=== PATIENT | female | born 1945 | race Caucasian/White ===

== ENCOUNTER 2017-06-28 14:28 | Inpatient (IN) | payer MEDICARE ==
[~2017-06-28] VITALS: Ht 160 cm; Wt 75.3 kg
[~2017-06-28 14:28] MED LIST: BENICAR40 MG PO; CRUTCH1 EACH; DELZICOL400 MG PO; IBUPROFEN600 MG PO; LANSOPRAZOLE30 MG PO; METOPROLOL SUCC50 MG PO; NORCO 5-325 TA1 EACH PO; REQUIP2 MG PO; SERTRALINE HCL25 MG PO; VOLTAREN100 GM TOP
[2017-08-13] MEDS ORDERED: SUCRALFATE1 GM PO (10:18)
[2017-08-13] MEDS ORDERED: IMITREX50 MG PO (10:19)
[2017-08-13] MEDS ORDERED: PROAIR HFA8.5 GM INH (10:39)
[2017-08-20] MEDS ORDERED: ALLOPURINOL100 MG PO (06:19)
--- NOTE | 2017-08-20 10:45 | NUR ---
08/20/17 1045 Celina Hickey REPORT PER PUBLIC FINANCE SPECIALIST. 1015-MD AT BEDSIDE.MOUTH CARE GIVEN. 1020-DURAMORPH EPID INFUSION REPROGRAMMED PER PUBLIC FINANCE SPECIALIST AND BEGUN.
--- NOTE | 2017-08-20 11:55 | NUR ---
PT'S OXYGEN SATURATION LEVEL 94% ON 2L. PT DROWSY. RATED PAIN 6/10 TO UPPER ABDOMEN, BUT FELL ASLEEP AFTER 60 SECONDS. RIGHT FOOT AND LOWER LEG HAS DIMINISHED SENSATION, NO REPORTS OF TINGLING. LEFT FOOT AND LOWER LEG ALSO HAS DIMINISHED SENSATION,BUT GREATER SENSATION THAN RLE. ABLE TO MOVE FEET. RESPIRATORY RATE 15 BREATHS PER MINUTE.
--- NOTE | 2017-08-20 12:05 | NUR ---
PT TO FLOOR FROM PACU VIA BED, ACCOMPANIED BY FRIEND AND JAYESH HUNTER. TO ROOM 107 AT 1150. PT DROWSY. AROUSED TO VERBAL STIMULI. GAVE PT INSENTIVE SPIROMETER, GAVE PT EDUCATION ON I.S. USE. PT USED, DID 10 BREATHS, GOT UP TO 1250. DRESSING TO ABDOMEN IS MEPILEX WITH OP SITE, DRESSING IS C/D/I. PT REPORTED INCREASE IN ABDOMINAL PAIN WITH DEEP BREATHS, BUT TOLERATED USING INSENTIVE SPIROMETER WELL. PT IS ON 2L O2 VIA NC, OXYGEN SATURATION LEVEL 94%. ON CONTINUOUS PULSE OX. PT'S NGT IS HOOKED TO KAREN.
--- NOTE | 2017-08-20 13:00 | NUR ---
PT IN BED SLEEPING. AROUSED TO VERBAL STIMULI. REPORTED THAT PAIN TO UPPER ABDOMEN HAS IMPROVED, RATED PAIN 5/10. SENSATION TO BILATERAL FEET/LEGS IS NOW EQUAL, SLIGHTLY DIMINISHED, PT ABLE TO MOVE FEET/TOES. RESPIRATORY RATE 18, OXYGEN SATURATION LEVEL 95% ON 2L O2 VIA NC. NGT TO LIWS, SMALL AMOUNT DARK BROWN DRAINAGE PRESENT IN TUBING.
--- NOTE | 2017-08-20 13:58 | NUR ---
PT IN BED, RESTING, NGT INTACT, TO LIWS, SMALL AMOUNT DARK BROWN DRAINAGE PRESENT IN TUBING. DRESSING TO ABDOMEN C/D/I. BILATERAL LOWER EXTREMITIES HAVE SLIGHTLY DIMINISHED SENSATION, SENSATION TO FEET/TOES EQUAL BILATERALLY. REPORTED PAIN TO UPPER ABDOMEN HAS IMPROVED, IS AT A TOLERABLE LEVEL AT THIS TIME. RESPIRATORY RATE 16, OXYGEN SATURATION LEVEL 96% ON 2L O2 VIA NC.
--- NOTE | 2017-08-20 15:04 | NUR ---
PT IN BED, RESTING QUIETLY. AROUSES TO VERBAL STIMULI. ORIENTED X 4. PT ABLE TO MOVE FEET, ANKLES, TOES, LEGS, IS ABLE TO PUSH FEET AGAINST THIS RN'S HANDS WITH GOOD FORCE. PT REPORTS TINGLING TO FEET/TOES, STILL DIMINISHED SENSATION, BUT IMPROVING. REPORTS PAIN IS STILL TOLERABLE TO UPPER ABDOMEN. RESPIRATORY RATE 20, SAT 94% ON 2L O2 VIA NC.
--- NOTE | 2017-08-20 16:28 | NUR ---
PT IN BED, RESTING WITH EYES CLOSED. AROUSED TO SOUND OF THIS RN ENTERING ROOM. PT REPORTED THAT PAIN TO UPPER ABDOMEN IS AT A TOLERABLE LEVEL. DENIED NAUSEA. REPORTED THAT SHE IS STILL FEELING SOME DIMINISHED SENSATION TO BILATERAL FEET/TOES, WITH TINGLING, REPORTED THAT SENSATION IS STILL IMPROVING. NGT TO LIWS, STILL JUST SMALL AMOUNT OF DARK BROWN DRAINAGE IN SUCTION TUBING.
[2017-08-20] MEDS ORDERED: L-LYSINE500 M1 PO (17:32)
[2017-08-20] MEDS ORDERED: ZOVIRAX400 MG PO (17:33)
--- NOTE | 2017-08-20 17:34 | NUR ---
Medications reconciled using PCP chart notes and patient interview
--- NOTE | 2017-08-20 18:02 | NUR ---
PT HAS D5LR INFUSING AT 85CC/HR. HAS MORPHINE EPIDURAL INFUSING AT 6ML/HR. NGT TO LOW INTERMITANT SUCTION, SMALL AMOUNT OF DARK BROWN DRAINAGE IN SUCTION TUBING AND CONTAINOR. PT ALLOWED CLEAR LIQUIDS, MOSTLY WATER, FOR COMFORT, NO ICE. PT HAS TOLERATED SMALL SIPS OF TAP WATER. MIDLINE ABDOMINAL INCISION COVERED WITH MEPILEX AND OPSITE, C/D/I. PT REPORTS DIMINISHED SENSATION TO FEET/TOES, WITH TINGLING. REPORTS THAT PAIN IS WELL CONTROLLED BY EPIDURAL THUS FAR. IS ON 2L O2 VIA NC TO MAINTAIN SATS GREATER THAN 90%. ON CONTINUOUS PULSE OX. HAD SPLENIC REPAIR, MONITOR FOR S/S BLEEDING. NONE NOTED THUS FAR. PT USED INSENTIVE SPIROMETER APROPRIATELY WHILE AWAKE. PT HAS BEEN DROWSY SINCE ARRIVAL AFTER SURGERY, BUT THIS HAS IMPROVED SLOWLY.
--- NOTE | 2017-08-20 18:49 | NUR ---
PT DANGLED LEGS, BECAME NAUSEATED, REPORTED VERTIGO WITH MOVEMENT. ASSISTED PT IN LAYING BACK IN BED, HOB ELEVATED. PT GIVEN COOL WASHCLOTH FOR FOREHEAD, ENCOUARGED TO TAKE SLOW DEEP BREATHS. PT REPORTED VERTIGO AND NAUSEA RESOLVING.
--- NOTE | 2017-08-21 00:32 | NUR ---
pt feeling very anxious, reassured. instructed not to forcebly cough, that what she is feelingis the ngt, receptive. medicated with toradol per abd pain
--- NOTE | 2017-08-21 01:51 | NUR ---
PT CALMER, RESTING, HOB 45o, NGT TO LIWS, DRAINING SMALL AMOUNTS OF DARK BROWN FLUID, PATENT. F/C PATENT DRAINING QS YELLOW URINE, SCDS INP[LACE, ABD DRESSING CDI. THIS NURSE WAS IN ROOM WITH PT 30+ MINUTES UNTIL PT CALMED DOWN AND LESS ANXIOUS,. CURRENTLY EYES CLOSED, NO RESP DISTRESS, CALMER
--- NOTE | 2017-08-21 05:42 | NUR ---
0523 - PT moved to room 119 via bed, tolerated well. NGT left nare, patent, draining thin brown colored drainage. has had a total of 300cc from begining to end of this shift. Pt tolerating sips of water, no chocking, no cough. Cont pulse ox in place, sats 94-96%. Morphine epidural infusing with good control. Large midline abd mepilex dressing covered with opsite CDI. very hypoactive bowel tones auscultated, IVF infusing w/o problems, scds in place. FC draining medium colored yellow urine QS. Pt was medicated wtih Torald IV per c/o generalized discomfort, effective. One episode of anxiety resolved . Pt currently awake watching tv, no c/o pain, no discomfort, no bleeding. repositioned in bed w help,
--- NOTE | 2017-08-21 07:50 | NUR ---
PATIENT SITTING STRAIGHT UP IN BED. WASHED HANDS AND FACE.
--- NOTE | 2017-08-21 08:22 | NUR ---
ASSESSMENT COMPLETE. PATIENT SITTING WITH HOB ELEVATED. PATIENT TAKING SIPS OF APPLE JUICE. GIVEN INSTRUCTIONS ON NOT EATING ANYTHING TOO HOT OR TOO COLD. PATIENT LUNGS CLEAR IN UPPER LOBES. FINE CRACKLES ASCULTATED IN L LOWER. RT IN ROOM FOR BREATHING TREATMENT. PATIENT HAS NO LOWER LEG SWELLING. SCDS IN PLACE. ABD HAS ACTIVE BS. NO FLATUS PASSED AT THIS TIME. HURST IN PLACE. URINE CAMRON IN COLOR. INSTRUCTED WITH PLACE TO GET OF BED TODAY.
--- NOTE | 2017-08-21 08:39 | NUR ---
DR. MASON IN ROOM. D/C'D PAMELA AT THIS TIME. PATIEN TOLERATED WELL. TOLERATING APPLE JUICE AND COOLED BROTH. INFORMED PATIENT OF PLAN TO D/C ARIS JOE.
--- NOTE | 2017-08-21 08:54 | OR ---
[facility] [address], [place] [address] Signed DATE OF OPERATION: 08/20/2017 SURGEON: Miguel Mason MD PREOPERATIVE DIAGNOSES: Intractable medically refractory gastroesophageal reflux disease with hiatal hernia, spontaneous regurgitation, esophagitis. POSTOPERATIVE DIAGNOSES: Intractable medically refractory gastroesophageal reflux disease with hiatal hernia, spontaneous regurgitation, esophagitis. PROCEDURE: 1. Hill repair (reconstruction of the gastroesophageal junction with posterior gastropexy). 2. Intraoperative manometrics. SURGEON: Miguel Mason MD ANESTHESIA: Epidural and general endotracheal, Sherry Jaime CRNA. INDICATION: This 71-year-old white woman is a patient of Dr. Terence Ashford, who has had longstanding gastroesophageal reflux problems. She was improved with medications. Unfortunately, she has had progression of her disease and has spontaneous regurgitation and mild dysphagia. She has nocturnal regurgitation and cough as well. She has had various medical regimens employed. She is not obese. Upper endoscopy performed in September 2016 confirmed hiatal hernia as well as low-grade esophagitis. A video esophagram was performed showing normal motility. She was admitted at this time to undergo reconstruction of the GE junction in hopes of improving her symptoms. She understands the risks of bleeding, infection, splenic injury, failure of operation, recurrent disease, dysphagia, short or long-term, and number of other potential complications outlined in our office notes. Understands that she wished to proceed. FINDINGS: A three finger GE junction was noted. The spleen was of normal size and the stomach was normal. The gallbladder was palpably and grossly normal as was the liver, although the left lateral segment was somewhat generous. There were adhesions in the lower aspect of the abdomen from previous low midline incision, which were freed up. The transverse colon was palpably and visibly normal. Reconstruction of the GE junction was accomplished in the standard way. Intraoperative Electronically Signed By: MIGUEL MASON MD 08/21/17 0854 PATIENT NAME: JOLIE HANLEY OPERATIVE REPORT DATE OF : 47 PHYSICIAN: MIGUEL MASON MD REPORT #: [id number] REPORT IS CONFIDENTIAL AND NOT TO BE RELEASED WITHOUT AUTHORIZATION [facility] [address], [place] [address] Signed manometric showed a peak pressure of approximately 35-40 mmHg over a 3 cm intraabdominal segment. During the course of operation, a medial capsular splenic tear allowed for some oozing of blood, which was controlled with Ervin and Gelfoam. Splenectomy was not required. By conclusion, a good flap valve was noted. The manometric tube was left in-situ to allow for postoperative decompression. The vagus nerves were identified, unharmed, and not encumbered in the wrap. DESCRIPTION OF PROCEDURE: The patient was brought to the operating room, given a general endotracheal anesthetic. An epidural catheter was placed and was considered "high" and functioning well. After satisfactory general endotracheal anesthesia, a Wright catheter was placed. The abdomen was prepared with a Betadine based solution and draped sterilely. Preoperative antibiotics were given as were sequential compression device stockings and heparin subcutaneously administered. An incision was made extending from the xiphoid to above the umbilicus. Abdominal wall fat was not excessively thick. The abdomen was entered without problem. Intraabdominal inspection was undertaken showing omental adhesions to the area above the umbilicus. These were taken down with blunt electrocautery dissection. A segment of transverse colon was densely adhesed and was freed up. A running 3-0 Vicryl was used to more fully secure a slight serosal tear in the mid transverse colon. Examination of the upper abdomen was undertaken. The spleen was of normal size and without lateral dense attachments. A rolled pack was placed behind it to take tension off the medial aspect of the spleen. The left lateral segment of liver was rather generous, but did not extend laterally very far. She was freed from the diaphragmatic attachments with electrocautery and blunt dissection. An upper hand retractor had been placed to allow for upper abdominal exposure. The gallbladder was palpably and visibly normal. The lesser omentum was incised with electrocautery revealing the caudate lobe of the liver. A [place] retractor was affixed to the lower aspect of the table allowing for fixed retraction of the left valve segment of the liver and the caudate lobe of the liver. This exposed the right keshawn of the diaphragm well. A Quinn clamp was applied to the right keshawn and using electrocautery, the phrenoesophageal bundle freed from it. Dissection was carried over the anterior aspect of the esophageal hiatus and gastrophrenic attachments were taken down with blunt, electrocautery dissection as well. Special care was taken in the region of the spleen, which did not have excessive short gastric involvement to the fundus of the stomach. The GE junction was elevated with a hook retractor allowing for dissection of the left keshawn freeing it completely. The preaortic fascia was freed down to the midportion of the Electronically Signed By: MIGUEL MASON MD 08/21/17 0854 PATIENT NAME: JOLIE HANLEY OPERATIVE REPORT DATE OF : 47 PHYSICIAN: MIGUEL MASON MD REPORT #: [id number] REPORT IS CONFIDENTIAL AND NOT TO BE RELEASED WITHOUT AUTHORIZATION [facility] [address], [place] [address] Signed pancreas. Special care was taken to free the esophagus from its filmy attachments in the posterior mediastinum making it fully mobile. The anterior and posterior vagus nerves were identified and kept out of harm's way. Elevation of the preaortic fascia from the underlying aorta was undertaken with blunt dissection using index finger. A calcific changes of the aorta were noted in this region. Bleeding was noted in the upper abdomen and it was not related to this dissection rather a capsular disruption of the medial aspect of the splenic hilum. There was no large vessel disruption, only capsular disruption. Ervin powdered hemostatic agent as well as Gelfoam was applied to the area and pressure applied. In time, there appeared to be good hemostasis allowing for progression of the operation. A small moist laparotomy pack was kept in the hilum during the rest of the operation and later removed. The left and right crura were then reapproximated with interrupted 0 silk suture with Iftikhar felt pledgets soaked in Betadine. The opening could accommodate not only esophagus, but the index finger alongside of the esophagus. [place] clamps were applied to the anterior and posterior phrenoesophageal bundles. In the standard technique of Wisam, a seromuscular bite of stomach and phrenoesophageal bundle was taken anteriorly, posteriorly, and pexed to the preaortic fascia, which was elevated away from the aorta with one of the silk sutures used to secure the crura. Five such repair sutures were placed. The repair sutures were of 0 Ethibond with Iftikhar felt pledgets soaked in Betadine. Surgeon's knots were used to secure the reconstructed GE junction to the preaortic fascia, but not fully secured until manometry was complete. Intraoperative manometrics were undertaken, showing a peak pressure of approximately 30-40 mmHg over a 3-4 cm segment of intraabdominal esophagus. The sutures were fully secured and a final pullout pressure was obtained showing a durable and reproducible waveform. Palpation of the reconstructive flap valve showed it to be quite good. The nasogastric tube was secured in place to allow for postoperative decompression of the stomach. The lap pad in the region of the splenic hilum was carefully removed. There was no ongoing bleeding. Additional Ervin and Gelfoam were applied to the area nevertheless. The posterior splenic pack was removed with all due care again showing no sign of bleeding. Plans were then made for closure. Midline fascia was reapproximated with running bidirectional #1 PDS suture. Subcutaneous tissue was irrigated with saline solution. Skin closed with running subcuticular 3-0 Vicryl. Steri-Strips were applied as was a Mepilex silver sponge dressing and an OpSite. Electronically Signed By: MIGUEL MASON MD 08/21/17 0854 PATIENT NAME: JOLIE HANLEY OPERATIVE REPORT DATE OF : 47 PHYSICIAN: MIGUEL MASON MD REPORT #: [id number] REPORT IS CONFIDENTIAL AND NOT TO BE RELEASED WITHOUT AUTHORIZATION [facility] [address], [place] [address] Signed The patient was ultimately extubated and transferred to recovery room in good condition having suffered no complications. Sponge, needle, and instrument counts were correct x3. Blood loss was estimated 150 mL based on the splenic capsule issue. Miguel Mason MD JM/MODL /[id number] cc: Terence Ashford MD Electronically Signed By: MIGUEL MASON MD 08/21/17 0854 PATIENT NAME: JOLIE HANLEY SASHA OPERATIVE REPORT DATE OF : 47 PHYSICIAN: MIGUEL MASON MD REPORT #: [id number] REPORT IS CONFIDENTIAL AND NOT TO BE RELEASED WITHOUT AUTHORIZATION
--- NOTE | 2017-08-21 10:06 | NUR ---
PATIENT STOOD AT BEDSIDE AND BACK TO BED. BED BATH DONE. LINENS CHANGED. ORAL CARE SET UP. NO OTHER NEEDS AT THIS TIME. RN IN ROOM.
--- NOTE | 2017-08-21 10:15 | NUR ---
vitals taken. arnp medication given. patient assisted to edge of bed. patient stood and did several marching steps. patient tolerated well. stating she felt weak and small amount of dizziness. much easier than yesterday patient reported. chio was d/c'd once patient was back to bed. assisted back to bed wtih hob elevated. pain remains well controlled. patient requesting to sleep a little this morning with plans to sit in the chair this afternoon. friend in room. educated about calling when needing to use br.
--- NOTE | 2017-08-21 11:31 | NUR ---
patient has c/o itching, nubain given 10mg subque at this time.
--- NOTE | 2017-08-21 11:44 | NUR ---
patient assisted to bsc. patient voided. assisted back to bed. don knutson in room to access epidural. taping adjustments made. assisted back to bed.
--- NOTE | 2017-08-21 12:00 | NUR ---
JELLO, APPLE JUICE, AND WARM BROTH GIVEN TO PATIENT FOR LUNCH. INSTRUCTIONS GIVEN TO GO SLOW. ASSESSMENT COMPLETE.
--- NOTE | 2017-08-21 12:29 | NUR ---
PATIENT RESTING IN BED WITH EYES CLOSED. FRIEND IN ROOM. CALL BUTTON IN REACH. NO NEEDS AT THIS TIME.
--- NOTE | 2017-08-21 13:33 | NUR ---
PATIENT RESTING WITH EYES CLOSED. RR EVEN AND UNLABORED. PATIENT COUSIN IN ROOM. NO OTHER NEEDS AT THIS TIME.
--- NOTE | 2017-08-21 14:00 | NUR ---
PATIENT UP TO CHAIR. BED NORMA. RN IN ROOM. NO OTHER NEEDS AT THIS TIME.
--- NOTE | 2017-08-21 14:13 | NUR ---
VITALS TAKEN. PATIENT ASSISTED TO CHAIR. TOLERATING AMBULATING IN ROOM VERY WELL. PATIENT STATED SHE WOULD LIKE TO EAT HER JELLO IN CHAIR AND THEN WILL CALL FOR A WALK.
--- NOTE | 2017-08-21 15:33 | NUR ---
patient ambulated in rhoades. tolerating ambulating to nursing station and back. assisted to the br. voided. brushed teeth. assisted back to bed. tolerating movement well.
--- NOTE | 2017-08-21 16:25 | NUR ---
report given to onel beal. introduced to new nurse. no other needs at this time.
--- NOTE | 2017-08-21 16:26 | NUR ---
patient has had a good day. currently on ra. cont. pulse ox in place. morphine epidural for another 24hrs. checked by don knutson. patient has been given toradol x 1 for break through pain. patient ambulated in rhoades. tolerating with 1 assist. was able to ambulate to nursing station. iv fluids running wnl. patient on clear liquid diet. not too hot and not too cold. active bs. no flatus at this time. voiding well.
--- NOTE | 2017-08-21 18:08 | NUR ---
PATIENT SITTING UP IN BED. STATES THAT SHE'S WORKING ON HER CLEAR LIQUID TRAY STILL. CALL BUTTON IN REACH. NO OTHER NEEDS AT THIS TIME.
--- NOTE | 2017-08-21 18:28 | NUR ---
PT REPORTS THAT HER PAIN IS WELL MANAGED AT THIS TIME. SHE SAID, "IT A MILD ACHE LIKE GAS IS MOVING." NO CONCERNS, NO REQUESTS AT THIS TIME. GUEST AT BEDSIDE.
--- NOTE | 2017-08-21 19:00 | NUR ---
RECEIVED REPORT FROM RN. PATIENT IS RESTING COMFORTABLY IN BED, BREATHING IS EVEN AND UNLABORED. DENIES NEEDS, NO PAIN AT THIS TIME. CALL LIGHT WITHIN REACH, VISITORS AT BEDSIDE.
--- NOTE | 2017-08-21 19:59 | NUR ---
EPIDURAL SITE ASSESSED. DRESSING CLEAN AND INTACT. SMALL AMOUNT OF DRAINAGE NOTED. SURROUNDING SKIN IS WNL, NO SIGNS OF INFLAMMATION. UNABLE TO ADD EPIDURAL ASSESSMENT TO INTERVENTION LIST.
--- NOTE | 2017-08-21 19:59 | NUR ---
PATIENT ASSISTED TO BATHROOM USING 1PA/NON-SLIP SOCKS, WHICH THE PATIENT TOLERATED WELL. REPORTS MILD PAIN, BUT STATES "I WANT TO WAIT FOR SOME PAIN MEDICATION. I DON'T WANT IT RIGHT NOW." NO FURTHER NEEDS. NOW RESTING COMFORTABLY IN BED, BREATHING IS EVEN AND UNLABORED. O2 SATURATION IS 93% ON ROOM AIR. CALL LIGHT WITHIN REACH, VISITOR AT BEDSIDE.
--- NOTE | 2017-08-21 20:11 | NUR ---
NURSE IN ROOM. PATIENT DOES NOT NEED ANYTHING AT THIS TIME. WHITEBOARD UPDATED, GREEN SHEET PUT ON DOOR, ROOM TIDIED.
--- NOTE | 2017-08-21 22:24 | NUR ---
PATIENT RESTING COMFORTABLY IN BED, BREATHING IS EVEN AND UNLABORED. O2 SATURATION IS 88% ON ROOM AIR, 1L O2 APPLIED VIA NC. HEART RATE IS 100. PATIENT REPORTS 7/10 PAIN IN ABD AT INCISION SITE. SHE STATES "IT FEELS SORE, LIKE I DID SOME ABDOMINAL EXERCISES." PRN TORDOL GIVEN PER EMAR. PATIENT ALSO REPORTS ITCHING, PRN NUBAIN GIVEN. DENIES FURTHER NEEDS AT THIS TIME. CALL LIGHT WITHIN REACH.
--- NOTE | 2017-08-21 23:30 | NUR ---
NURSE IN ROOM
--- NOTE | 2017-08-21 23:31 | NUR ---
PATIENT IS RESTING COMFORTABLY IN BED, BREATHING IS EVEN AND UNLABORED. O2 SATURATION IS 90% ON 1L O2 VIA NC, PULSE IS 90. FLACC SCORE OF 0. CALL LIGHT WITHIN REACH.
--- NOTE | 2017-08-22 01:45 | NUR ---
EPIDURAL SITE IS WNL. DRESSING IS CLEAN AND INTACT, NOW NEW DRAINAGE NOTED. SKIN AROUND INSERTION SITE IS WNL SHOWING NO SIGNS OF INFLAMMATION. PATIENT DENIES PAIN AT INSERTION SITE.
--- NOTE | 2017-08-22 02:27 | NUR ---
NURSE IN ROOM
--- NOTE | 2017-08-22 02:34 | NUR ---
PATIENT RESTING COMFORTABLY IN BED, BREATHING IS EVEN AND UNLABORED. O2 SAT IS 94% ON 1L O2 VIA NC, PULSE IS 94. DENIES NEEDS AT THIS TIME. REPORTS 6/10 PAIN AFTER AMBULATION TO COMODE USING 1PA/FWW/NON-SLIP SOCKS. OFFERED PAIN MEDICATION, BUT PATIENT DENIED NEED. SHE STATED "ONCE I AM IN BED AGAIN AND LAYING STILL, I WILL BE OKAY. I DO NOT WANT PAIN MEDICATION RIGHT NOW." PATIENT ALSO REPORTS THE NUBAIN RELIEVED PRURITUS. NO NEEDS AT THIS TIME. ALL ORDERS IN PLACE, CALL LIGHT WITHIN REACH.
--- NOTE | 2017-08-22 04:28 | NUR ---
PATIENT RESTING COMFORTABLY IN BED, BREATHING IS EVEN AND UNLABORED. O2 SATURATION IS 91% ON 1L O2 VIA NC, PULSE IS 83. CALL LIGHT WITHIN REACH.
--- NOTE | 2017-08-22 05:03 | NUR ---
PATIENT'S NIGHT WAS UNEVENTFUL. SHE HAS BEEN RESTING COMFORTABLY THROUGHOUT SHIFT, VSS, PAIN HAS BEEN WELL CONTROLLED WITH MORPHINE EPIDURAL AND PRN TORDOL. PATIENT REPORTED ITCHING X1, WHICH WAS RELIEVED BY NUBAIN ADMINISTRATION. NO COMPLAINTS OF NAUSEA. TOLERATING AMBULATION WELL WITH 1PA. DRESSING TO ABD HAS REMAINED CDI THROUGHOUT SHIFT, DRESSING FOR EPIDURAL HAS BEEN CLEAN AND INTACT WITH A SMALL AMOUNT OF DRAINAGE NOTED, WHICH HAS NOT CHANGED FROM BEGINNING OF SHIFT. REQUIRED 1L O2 DURING SLEEP DUE TO SATURATION OF 88% ON ROOM AIR. 92% ON 1L O2. TOLERATING CLEAR LIQUID DIET WELL, HAS FLUIDS RUNNING. NO ACUTE CHANGES FROM BEGINNING OF SHIFT ASSESSMENT.
--- NOTE | 2017-08-22 07:05 | NUR ---
BEDSIDE REPORT RECEIVED FROM TIGRE. PATIENT RESTING IN BED AWAKE, REPORT MINIMAL PAIN AND ITCHING. WASTE CHOPPER IN USE. PATIENT DENIES NAUSEA AT THIS TIME.
--- NOTE | 2017-08-22 08:06 | NUR ---
PATIENT ASSISTED TO BATHROOM, PATIENT REPORT BEING A LITTLE DIZZY WHEN FIRST SITTING AT BEDSIDE. MILD NAUSEA. PATIENT ALSO REPORTS THAT SHE IS FEELING WEAK. IV SITE PATENT AND EPIDURAL IN PLACE INFUSING. NO DISTRESS. PATIENT ASSISTED BACK TO CHAIR. RT IN ROOM AT THIS TIME TO GIVE PATIENT NEB TX
--- NOTE | 2017-08-22 08:19 | NUR ---
AM CARE. CLEANED UP ROOM. EMPTYED GARBAGE. FRESH WATER.
--- NOTE | 2017-08-22 11:09 | NUR ---
DENNIS CANNON WAS IN ROOM TO HENRRY NEGRON. DR ISABELLA OVERTON.
--- NOTE | 2017-08-22 12:16 | NUR ---
PT IN CHAIR. DOING WELL. SET UP FOR LUNCH.
--- NOTE | 2017-08-22 13:26 | NUR ---
PATIENT RESTING IN BED DENIES PAIN AT THIS TIME. EPIDURAL WAS D/C THIS AM PER DAVIS COLLINS. PATIENT TOLERATED FULL LIQUID WELL. FAMILY AT BEDSIDE.
--- NOTE | 2017-08-22 14:58 | NUR ---
PATIENT SITTING AT BEDSIDE. REPORT NO DIZZINESS. RATED PAIN AT 3/10 AND IS TOLERABLE FOR HER. PATIENT TOLERATED FULL LIQUID WELL.
--- NOTE | 2017-08-22 15:37 | NUR ---
DR MASON WAS IN ROOM TO SEE PATIENT. PATIENT IS RESTING IN THE CHAIR AT THIS TIME. NO APPARENT DISTRESS NOTED. RR EVEN/UNLABORED.
--- NOTE | 2017-08-22 15:38 | NUR ---
PT IN BED. TOOK PT TO THE BATHROOM. TOOK OFF PULSE OX. CALL LIGHT IN REACH.
--- NOTE | 2017-08-22 17:35 | NUR ---
PATIENT ASSISTED TO BATHROOM WITH FWW WITH NO DIFFICULTY. PATIENT REPORTS VERY MILD PAIN. ABD DRESSING D/C/I. PATIENT DENIES ANY NAUSEA. BILL OF LADING CLERK LACIE ASSISTED PATIENT BACK TO CHAIR.
--- NOTE | 2017-08-22 17:47 | NUR ---
TOOK PT TO BATHROOM. SHE SAID SHE DID NOT WANT TO GO FOR A WALK. SO SHE IS SITTING IN HER CHAIR WITH HER CALL LIGHT. WARM BLANKET.
--- NOTE | 2017-08-22 17:52 | NUR ---
PATIENT HAD A FAIR DAY. EPIDURAL D/C'D THIS AM. PATIENT HAD BEEN UP TO BATHROOM TO VOID MULTIPLE TIME. REPORTED VERY MILD PAIN FOR THE SHIFT. ABD TENDER, ABD DRESSING INTACT,POSITIVE BOWEL TONES. IV SITE PATENT AND D5LR INFUSING @ 85ML/HR. DIET ADVANCED TO FULL LIQUID. PATIENT TOLERATED WELL. NO NAUSEA. PATIENT IS A LITTLE WEAK. USED WALKER TO GO TO BATHROOM. ENCOURAGE AMBULATION.
--- NOTE | 2017-08-22 19:00 | NUR ---
RECEIVED REPORT FROM RN. PATIENT IS RESTING COMFORTABLY IN CHAIR COMFORTABLY. DENIES NEEDS AT THIS TIME. CALL LIGHT WITHIN REACH, FAMILY AT BEDSIDE.
--- NOTE | 2017-08-22 19:25 | NUR ---
ROUNDED CHARGE. PATIENT IS RESTING IN RECLINER VISITING WITH FAMILY. PATIENT DENIES ANY, COMMENTS, QUESTIONS, OR CONCERNS. NO NEEDS AT THIS TIME. CALL LIGHT IN REACH.
--- NOTE | 2017-08-22 21:43 | NUR ---
PATIENT RESTING COMFORTABLY IN CHAIR, BREATHING IS EVEN AND UNLABORED. ASSISTED PATIENT TO BATHROOM USING 1PA/FWW/NON-SLIP SOCKS. NOW RESTING COMFORTABLY IN BED. PATIENT REPORTS 6/10 PAIN IN ABD, PRN DILAUDID GIVEN PER EMAR. PATIENT DENIES FURTHER NEEDS AT THIS TIME. CALL LIGHT WITHIN REACH.
--- NOTE | 2017-08-23 00:24 | NUR ---
PATIENT RESTING COMFORTABLY IN BED, BREATHING IS EVEN AND UNLABORED. CALL LIGHT WITHIN REACH.
--- NOTE | 2017-08-23 02:00 | NUR ---
PATIENT ASSISTED TO BATHROOM WITH 1PA/FWW/NON-SLIP SOCKS. REPORTS 1/10 PAIN IN ABD AND STATES "I DON'T WANT ANOTHER ONE OF THOSE PILLS. IT MADE ME FEEL NAUSEAOUS." WILL ADMINISTER PRN ZOFRAN. DENIES FURTHER NEEDS AT THIS TIME. BREATHING IS EVEN AND UNLABORED. ASSESSMENT DONE. CALL LIGHT WITHIN REACH.
--- NOTE | 2017-08-23 05:08 | NUR ---
PATIENT RESTING COMFORTABLY IN BED, BREATHING IS EVEN AND UNLABORED. FLACC SCORE OF 0. CALL LIGHT WITHIN REACH.
--- NOTE | 2017-08-23 05:12 | NUR ---
PATIENT'S NIGHT WAS UNEVENTFUL. SHE HAS BEEN RESTING COMFORTABLY IN BED THROUGHOUT SHIFT. VSS, PAIN HAS BEEN WELL CONTROLLED WITH PO DILAUDID. PATIENT BECAME NAUSEOUS ONCE LAST NIGHT, PRN ZOFRAN GIVEN WITH ADEQUATE RELIEF. PATIENT HAS BEEN UNABLE TO HAVE A BOWEL MOVEMENT SINCE HER ADMISSION, BOWEL TONES ARE ACTIVE AND PATIENT IS PASSING GAS. NO ACUTE CHANGES FROM BEGINNING OF SHIFT.
--- NOTE | 2017-08-23 06:38 | NUR ---
PATIENT RESTING COMFORTABLY IN CHAIR, BREATHING IS EVEN AND UNLABORED. PATIENT REPORTS HEADACHE THIS MORNING AND STATES "I DO NOT LIKE THE DILAUDID THAT I TOOK EARLIER. IT MADE ME FEEL SICK." PATIENT ASKING FOR TYLENOL FOR HEADACHE. WILL CONTACT DR. MASON REGARDING PATIENT'S REQUEST. NO OTHER NEEDS AT THIS TIME. CALL LIGHT WITHIN REACH.
--- NOTE | 2017-08-23 07:30 | NUR ---
REPORT RECEIVED FROM TIGRE. PATIENT UP TO CHAIR. REPORT MILD HEADACHE, AND SORENESS AT THE INCISION SITE. LUKE WARM COFFE PROVIDED. IV FLUID INFUSING. WILL CONTINUE TO MONITOR
--- NOTE | 2017-08-23 08:00 | NUR ---
WHITEBOARD UPDATED, ROOM TIDIED. PATIENT IN CHAIR. DOES NOT NEED ANYTHING AT THIS TIME.
--- NOTE | 2017-08-23 08:30 | NUR ---
PATIENT RESTING IN THE CHAIR. DENIES PAIN AND NAUSEA. REPORTS SORENESS AT THE INCISION SITE. PATIEN TOLERATED FULL LIQUID WELL. POSITIVE BOWEL TONES.N ABD DRESSIGN CLEAN & DRY. PATIENT REPORTS THAT SHE IS FEELING BETTER TODAY. ALSO REPORTS PASSISNG FLATUS.
--- NOTE | 2017-08-23 10:00 | NUR ---
BREAKFAST TRAY TAKEN OUT
--- NOTE | 2017-08-23 11:36 | NUR ---
PATIENT WAS UP TO BATHROOM. PATIENT AMBULATED IN THE LILLY WAY WITH NO DIFFICULTY. PATIENT DENIES PAIN AND NAUSEA. RESTING IN THE CHAIR AT THIS TIME.
--- NOTE | 2017-08-23 12:54 | NUR ---
patient doing well, does not need anything at this time.
--- NOTE | 2017-08-23 15:25 | NUR ---
PATIENT RESTING IN THE CHAIR, APPEARS TO BE SLEEPING. NO APPARENT DISTRESS. RR EVEN/UNLABORED.
--- NOTE | 2017-08-23 16:34 | NUR ---
IV D/C DUE TO PAIN. DR MASON AWARE. PATIENT RESTING IN THE CHAIR AT THIS TIME, REPORT PAIN AT THE LEFT FOREARM. ICE PACK APPLIED AFTER IV WAS D/C'D.
--- NOTE | 2017-08-23 17:40 | NUR ---
TOOK PATIENT TO BEDSIDE COMMODE. INCONTINENT OF STOOL. PERFORMED NELSON CARE/ PARTIAL BEDBATH. CHANGED DEPEND AND GOWN. REFILLED ICE WATER AND TOOK VITAL SIGNS. PATIENT DOES NOT NEED ANYTHING ELSE AT THIS TIME.
--- NOTE | 2017-08-23 18:09 | NUR ---
PATIENT HAD DONE WELL TODAY. AMBULATED IN THE HALLWAY ONCE AND IN THE ROOM. TOLERATED FULL LIQ WELL. NO NAUSEA. IV DC PER DR MASON ORDER. PATIENT MAY HAVE SHOWER. DRESSING INTACT AND DRY. MAY GO HOME TOMORROW.
--- NOTE | 2017-08-23 20:15 | NUR ---
EVENING MEDS GIVEN PER ORDER. PATIENT REPORTS PAIN CONTROLLED AT 3/10. NO NAUSEA. FEELS LIKE SHE HAS GAS, TALKED WITH HER ABOUT AMBULATION AND SHE AGREED TO WALK IN HALLWAY WITH HER FRIEND THAT IS VISITING. ABD IS MILDLY DISTENDED AND BOWEL SOUNDS ACTIVE. MIDLINE ABD DRESSING IS C/D/I. LUNGS ARE CLEAR. NO NEEDS AT THIS TIME. CALL LIGHT IN REACH.
--- NOTE | 2017-08-23 20:24 | NUR ---
PATIENT UP WALKING IN HALLWAY. APPEARS STEADY ON HER FEET. SBA WITH FRIEND. TOLERATING WELL. WALKED FULL LENGTH OF LILLY AND BACK TO ROOM.
--- NOTE | 2017-08-23 21:35 | NUR ---
PATIENT REQUEST PRN PAIN MEDS, WHICH WERE GIVEN TO HER. REPORTS PAIN IS 4/10 BUT INCREASING. PATIENT REPORTS FEELING BLISTERS ON HER MID BACK. PATIENT HAD TAPE FROM EPIDURAL POST SURGERY THAT WAS REMOVED. APPEARS TO BE A SENSITIVITY TO TAPE. BACITRACIN OINTMENT APPLIED.
--- NOTE | 2017-08-24 00:30 | NUR ---
PATIENT RESTING IN BED. EYES CLOSED, AWOKE TO NURSE ENTERING ROOM. DENIES NEEDS AND STATED THAT HER PAIN IS "FINE". CALL LIGHT IN REACH. SCDS ON.
--- NOTE | 2017-08-24 01:41 | NUR ---
ASSISTED PATIENT TO THE BATHROOM. PATIENT TOLERATED WELL,SBA. PATIENT REPORTS PAIN AT 1/10 AND DENIES NAUSEA. SHE REPORTS THAT THE PO DILAUDID WORKED WELL FOR HER BECAUSE SHE HAD BEEN CONCERNED ABOUT TAKING ANY NARCOTICS. DRESSING IS C/D/I. PATIENT BACK IN BED. SCDS ON. CALL LIGHT IN REACH.
--- NOTE | 2017-08-24 03:50 | NUR ---
PATIENT RESTING IN BED. EYES CLOSED. RR15. CALL LIGHT IN REACH.
--- NOTE | 2017-08-24 05:00 | NUR ---
PATIENT RESTING. EYES CLOSED. RR 15. CALL LIGHT IN REACH.
--- NOTE | 2017-08-24 05:29 | NUR ---
PATIENT RESTED WELL THROGUHOUT THE SHIFT. RA, O2 >90%. DRESSING IS C/D/I, ABD IS MILDLY DISTENDED, BOWEL SOUNDS ACTIVE. PATIENT AMBULATED IN HALLWAY. NO NAUSEA. PAIN WELL CONTROLLED. NO IV ACCESS.
--- NOTE | 2017-08-24 07:56 | NUR ---
WHITEBOARD UPDATED, ROOM TIDIED. PATIENT ASLEEP WHEN I WENT IN. PATIENT JUST CALLED TO GET A SHOWER, NURSE WENT IN TO GET HER INTO THE SHOWER.
--- NOTE | 2017-08-24 08:40 | NUR ---
PATIENT SAID BREAKFAST WAS TOO SWEET. MADE PATIENT TOMATO SOUP
--- NOTE | 2017-08-24 09:00 | NUR ---
PATIENT UP TO SHOWER, INDEPENDANT IN ROOM. FULL BODY ASSESMENT DONE. NO COMPLAINTS OF PAIN. PATIENT STATES " I AM READY TO GO HOME". PLAN TO DISCHARGE TODAY.
--- NOTE | 2017-08-24 11:49 | NUR ---
PATIENT GETTING READY TO BE DISCHARGED
[2017-08-24] MEDS ORDERED: HYDROMORPHONE HC4 MG PO (12:27)
--- NOTE | 2017-08-24 12:47 | NUR ---
DR. ISABELLA ROSALES, NEW ORDER FOR DISCHARGE.
--- NOTE | 2017-08-24 13:14 | NUR ---
DID PATIENT'S DISCHARGE VITAL SIGNS.
--- NOTE | 2017-08-27 11:14 | DS ---
[facility] [address] [place], [place] [address] Signed ADMISSION DATE: 08/20/2017 DISCHARGE DATE: 08/24/2017 REASON FOR ADMISSION: Here for Hill repair for intractable medically refractory gastroesophageal reflux with hiatal hernia. HISTORY OF PRESENT ILLNESS: This 71-year-old white woman is a patient of Dr. Terence Ashford and has had progressive intractable medically refractory gastroesophageal reflux. She has spontaneous regurgitation, requires a PPI medication as well as Carafate for minimal symptom control at this time. A video esophagram showed normal motility. Upper endoscopy confirmed hiatal hernia as well as low-grade esophagitis. She is admitted to undergo Hill repair for reconstruction of GE junction. PERTINENT PHYSICAL EXAMINATION: GENERAL: A pleasant white woman, who looked to be in no acute distress. NECK: Trachea midline. CHEST: Clear. HEART: Regular without murmur. ABDOMEN: Mildly obese only. EXTREMITIES: No clubbing, cyanosis, or edema. HOSPITAL COURSE: On August 20, 2017, she underwent Hill repair with intraoperative manometrics. An optimal flap valve was reconstructed. Intraoperative manometric pressure showed a peak pressure of approximately 35-40 mmHg over a 3 cm intraabdominal segment. Reconstructive flap valve was considered optimal. An epidural catheter was placed for postoperative pain control. Postoperatively, she had essentially no pain with a catheter in place. The catheter was maintained for 48 hours, removed, and exchanged for a Dilaudid pill, which she tolerated well. As regards to diet, she began on a clear liquid diet the night of operation, though she did have the manometric decompressive tube in place. She advanced to a full liquid diet and was left in that station due to mild slowness of swallowing. She will advance her diet to mechanical soft diet as an outpatient. By time of discharge, she is ambulating well, tolerating a pain pill (Dilaudid), has minimal incisional pain, and no overt dysphagia. Most importantly, she has no reflux whatsoever. She will return to see me in approximately 4 weeks for followup. She is instructed to avoid lifting more than 20 pounds for the next 4 weeks. She should walk on Electronically Signed By: MIGUEL MASON MD 08/27/17 1114 PATIENT NAME: JOLIE HANLEY DISCHARGE SUMMARY DATE OF : 47 PHYSICIAN: MIGUEL MASON MD REPORT #: [id number] REPORT IS CONFIDENTIAL AND NOT TO BE RELEASED WITHOUT AUTHORIZATION [facility] [address] [place], [place] [address] Signed a daily basis and advance diet as described. DISCHARGE MEDICATIONS: Will include: 1. Dilaudid 4 mg tablets 1-2 p.o. q.3 hours p.r.n. pain, #40. 2. Requip 2 mg p.o. at bedtime. 3. Metoprolol 50 mg p.o. daily. 4. Benicar 40 mg p.o. daily. 5. Imitrex 50 mg tablet as needed for migraine headache. 6. ProAir albuterol 2 puffs inhaler q.4 hours as needed. 7. Allopurinol 100 mg tablet p.o. daily. 8. Lysine 500 mg tablet daily as needed. 9. Acyclovir Zovirax 400 mg 1 tablet p.o. b.i.d. as needed for cold sores. 10. She will discontinue her lansoprazole and sucralfate. DISCHARGE DIAGNOSES: 1. Medically refractory gastroesophageal reflux with hiatal hernia and spontaneous regurgitation. 2. Status post Hill repair (reconstruction of the GE junction with posterior gastropexy and intraoperative manometrics). 3. Hypertension. 4. Restless legs syndrome. MD MARICRUZ Juares/CHELAL /[id number] cc: Terence Ashford MD Electronically Signed By: MIGUEL MASON MD 08/27/17 1114 PATIENT NAME: JOLIE HANLEY SASHA DISCHARGE SUMMARY DATE OF : 47 PHYSICIAN: MIGUEL MASON MD REPORT #: [id number] REPORT IS CONFIDENTIAL AND NOT TO BE RELEASED WITHOUT AUTHORIZATION
== END 2017-08-24 13:00 | disposition home or self-care (01) | DRG 328 ==
LOC: MS 08-20 05:40 → DSVR 08-20 05:40 → MS 08-20 06:45
PROVIDERS: ADMIT Surgery
PROC: 0DQ40ZZ Repair Esophagogastric Junction, Open Approach (ICD-10-PCS; principal; 2017-08-20 06:45)
DX: K44.9 Diaphragmatic hernia without obstruction or gangrene (principal); I10 Essential (primary) hypertension; G25.81 Restless legs syndrome; K21.0 Gastro-esophageal reflux disease with esophagitis
CPT/HCPCS: 00790; 01996; 36415; 62325; 85025; 94640; 94762; J0330; J1100; J1644; J1885; J2060; J2274; J2300; J2370; J2405; J2704; J7040; J7120

== ENCOUNTER 2020-05-20 18:00 | Emergency (ER) | payer MEDICARE ==
[~2020-05-20] VITALS: Ht 160 cm; Wt 75.3 kg
--- OUTSIDE RECORDS SUMMARY | ~2020-05-20 | XMS | Encounter Summary ---
Demographics + + + | Address | [address] | | | [place] [address] | + + + | Home Phone | | + + + | Preferred Language | Unknown | + + + | Marital Status | Single | + + + | Evangelical Affiliation | Unknown | + + + | Race | White | + + + | Ethnic Group | Not or | + + + Author + + + | Author | [facility] | | | and [place] | + + + | Organization | [facility] | | | and [place] | + + + | Address | Unknown | + + + | Phone | Unavailable | + + + Support + + +---------+ + | Name | Relationship | Address | Phone | + + +---------+ + | Clyde Poole | ECON | Unknown | | + + +---------+ + Care Team Providers + +------+ + | Care Psych Sales Specialist Name | Role | Phone | + +------+ + PCP | Unavailable | + +------+ + Encounter Details +--------+ + + + + | Date | Type | Department | Care Team | Description | +--------+ + + + + | 06/21/ | Hospital | [facility] | | | | 2007 | Encounter | [facility] | | | | | | [address] | | | | | | [place] | | | | | | [address] | | | | | | [phone] | | | +--------+ + + + + Social History + +-------+ +--------+------+ | Tobacco Use | Types | Packs/Day | Years | Date | | | | | Used | | + +-------+ +--------+------+ | Never Assessed | | | | | + +-------+ +--------+------+ + + + | Sex Assigned at | Date Recorded | | | | + + + | Not on file | | + + + documented as of this encounter Plan of Treatment Not on filedocumented as of this encounter Visit Diagnoses Not on filedocumented in this encounter"
--- OUTSIDE RECORDS SUMMARY | ~2020-05-20 | XMS | Encounter Summary ---
Demographics + + + | Address | [address] | | | [place] [address] | + + + | Home Phone | | + + + | Preferred Language | Unknown | + + + | Marital Status | Single | + + + | Confucianism Affiliation | Unknown | + + + | Race | White | + + + | Ethnic Group | Not or | + + + Author + + + | Author | [facility] | | | and [place] | + + + | Organization | [facility] | | | and [...] Team Providers + +------+ + | Care Aged Or Disabled Carer Name | Role | Phone | + +------+ + | Shari Jensen MD | PCP | | + +------+ + Reason for Visit + + + | Reason | Comments | + + + | Flank Pain | | + + + Encounter Details +--------+ + + + + | Date | Type | Department | Care Team | Description | +--------+ + + + + | 06/23/ | Emergency | [facility] | Naveen Coon | Flank pain (Primary | | 2013 | | [facility] | [address] | Dx); Ureteral colic | | | | [address] | [address] [facility] | | | | | [place], [place] | [place] [address] | | | | | [address] | [phone] | | | | | [phone] | | | | | | | Cl Ventura MD | | | | | | [address] [facility] | | | | | | [place] [address] | | | | | | [phone] | | | | | | | | +--------+ + + + + Social History + +-------+ +--------+------+ | Tobacco Use | Types | Packs/Day | Years | Date | | | | | Used | | + +-------+ +--------+------+ | Never Smoker | | | | | + +-------+ +--------+------+ + +---+---+---+ | Smokeless Tobacco: | | | | | Never Used | | | | + +---+---+---+ + + +---------+ + | Alcohol Use | Drinks/Week | oz/Week | Comments | + + +---------+ + | Yes | | | rare | + + +---------+ + + + + | Sex Assigned at | Date Recorded | | | | + + + | Not on file | | + + + documented as of this encounter Last Filed Vital Signs + + + + + | Vital Sign | Reading | Time Taken | Comments | + + + + + | Blood Pressure | 160/78 | 06/23/2014 10:10 AM | | | | | MDT | | + + + + + | Pulse | 72 | 06/23/2014 10:10 AM | | | | | MDT | | + + + + + | Temperature | 36.7 C (98 F) | 06/23/2014 10:10 AM | | | | | MDT | | + + + + + | Respiratory Rate | 16 | 06/23/2014 10:10 AM | | | | | MDT | | + + + + + | Oxygen Saturation | 98% | 06/23/2014 10:10 AM | | | | | MDT | | + + + + + | Inhaled Oxygen | - | - | | | Concentration | | | | + + + + + | Weight | - | - | | + + + + + | Height | - | - | | + + + + + | Body Mass Index | - | - | | + + + + + documented in this encounter Discharge Instructions Instructions Cl Ventura MD - . Drink plenty of fluids 2. Toradol as prescribed 3. If pain worsens she may need additional studies like an IVP 4. Followup with your primary care provider or return to the ER if not improving AttachmentsThe following attachments cannot be sent through Care Everywhere.KIDNEY STONE W/ COLIC (CHINESE)documented in this encounter Medications at Time of Discharge + + + +---------+ + + | Medication | Sig | Dispensed | Refills | Start | End Date | | | | | | Date | | + + + +---------+ + + | acetaminophen | Take 500 mg by mouth | | 0 | 06/05/20 | | | (TYLENOL EX ST | Daily as needed. | | | 12 | | | ARTHRITIS PAIN) 500 | | | | | | | mg tablet | | | | | | + + + +---------+ + + | acyclovir | Take 800 mg by mouth | | 0 | 06/05/20 | | | (ZOVIRAX) 800 mg | 2 times daily. | | | 12 | | | tablet | | | | | | + + + +---------+ + + | Albuterol Sulfate | AERS 1 puff every | | 0 | 06/05/20 | | | (PROVENTIL HFA IN) | 4-6 hours | | | 12 | | + + + +---------+ + + | buPROPion | Take 150 mg by mouth | | 0 | 01/23/20 | | | (WELLBUTRIN XL) 150 | Daily. | | | 11 | | | mg 24 hr tablet | | | | | | + + + +---------+ + + | Calcium Carbonate | TABS Take one tablet | | 0 | 06/05/20 | | | (CALCARB 600 PO) | twice daily | | | 12 | | + + + +---------+ + + | cephalexin | Take 500 mg by mouth | | 0 | 08/01/20 | | | (KEFLEX) 500 mg | every 6 hours. | | | 10 | | | capsule | | | | | | + + + +---------+ + + | diclofenac | Take 100 mg by mouth | | 0 | 06/05/20 | | | (VOLTAREN XR) 100 mg | Daily. | | | 12 | | | TB24 | | | | | | + + + +---------+ + + | estradiol | Take 2 mg by mouth | | 0 | 06/05/20 | | | (ESTRACE) 2 MG | Daily. | | | 12 | | | tablet | | | | | | + + + +---------+ + + | | 1 puff twice daily | | 0 | 06/05/20 | | | fluticasone-salmeter | | | | 12 | | | ol (ADVAIR DISKUS) | | | | | | | 100-50 mcg/puff | | | | | | | diskus inhaler | | | | | | + + + +---------+ + + | folic acid 1 mg | Take 1 mg by mouth | | 0 | 06/05/20 | | | tablet | Daily. | | | 12 | | + + + +---------+ + + | | Take 1-2 tablets by | 20 | 0 | 06/23/20 | | | HYDROcodone-acetamin | mouth every 4 hours | tablet | | 14 | | | ophen (NORCO) 5-325 | as needed for Pain. | | | | | | mg per tablet | | | | | | + + + +---------+ + + | | Take one tablet by | | 0 | 06/05/20 | | | HYDROcodone-acetamin | mouth every 4-6 | | | 12 | | | ophen (VICODIN) | hours | | | | | | 5-500 mg per tablet | | | | | | + + + +---------+ + + | Inositol Niacinate | two by mouth every | | 0 | 01/23/20 | | | (NIACIN FLUSH FREE) | day | | | 11 | | | 500 MG CAPS | | | | | | + + + +---------+ + + | lansoprazole | Take 30 mg by mouth | | 0 | 06/05/20 | | | (PREVACID) [address] | Daily. | | | 12 | | | capsule | | | | | | + + + +---------+ + + | Magnesium Oxide | Take 400 mg by mouth | | 0 | 06/05/20 | | | 400 MG CAPS | 2 times daily. | | | 12 | | + + + +---------+ + + | mesalamine | Take 400 mg by mouth | | 0 | 06/27/20 | | | (ASACOL) [address] | 2 times daily. | | | 10 | | | tablet | | | | | | + + + +---------+ + + | metoprolol | Take 50 mg by mouth | | 0 | 06/05/20 | | | succinate (TOPROL | Daily. | | | 12 | | | XL) 50 mg 24 hr | | | | | | | tablet | | | | | | + + + +---------+ + + | montelukast | Take 10 mg by mouth | | 0 | 06/05/20 | | | (SINGULAIR) 10 mg | Daily. | | | 12 | | | tablet | | | | | | + + + +---------+ + + | olmesartan | Take one tablet by | | 0 | 06/27/20 | | | (BENICAR) 20 mg | mouth daily - failed | | | 10 | | | tablet | multiple | | | | | | | medications in past | | | | | | | able only to | | | | | | | tolerate Benicar | | | | | + + + +---------+ + + | Bancroft-3 Fatty | Take two capsules by | | 0 | 06/05/20 | | | Acids (EQL FISH OIL) | mouth daily | | | 12 | | | 1000 MG CAPS | | | | | | + + + +---------+ + + | Riboflavin | CAPS Take one | | 0 | 06/05/20 | | | (B-2-400 PO) | capsule by mouth | | | 12 | | | | daily | | | | | + + + +---------+ + + | SORAfenib | Take 400 mg by mouth | | 0 | | | | (NEXAVAR) 200 mg | 2 times daily. | | | | | | tablet | | | | | | + + + +---------+ + + | SUMAtriptan | Take 50 mg by mouth | | 0 | 06/05/20 | | | (IMITREX) 50 mg | Daily as needed. | | | 12 | | | tablet | | | | | | + + + +---------+ + + | ketorolac | Take 1 tablet by | 20 | 0 | 06/23/20 | | | (TORADOL) 10 MG | mouth every 6 hours | tablet | | 14 | 4 | | tablet | as needed for Pain | | | | | | | for up to 5 days. | | | | | + + + +---------+ + + documented as of this encounter ED Notes Nash Brennan RN - 06/23/2014 10:22 AM ADALBERTO instructions given to patient - verbalized understanding and voices no concerns- sent home with urine strainer Cl Sage MD - 06/23/2014 10:10 AM MD Gutierrez Continued care: This patient felt better after receiving the Toradol injection. I reviewed her history as well as her laboratory and physical findings. She does have a small amount of blood in her urine but her CT is negative. Ct Abdomen Pelvis Wo Contrast 06/23/2014 EXAMINATION: CT Abdomen and Pelvis without Contrast EXAMINATION DATE: June 23, 2014 REASON FOR EXAMINATION: Right flank pain. TECHNIQUE: Multiple, noncontrast, 5 mm, axial images were obtained through the abdomen and pelvis. Subsequently, thin section amber nstructions were performed and sagittal and coronal reformations were generated. CONTRAST: None COMPARISON: None available. FINDINGS: Lung bases: Streaky opacities at the bases sug gestive of platelike atelectasis. Abdomen: Liver: Normal by noncontrast CT standards. Gal lbladder/biliary: No radiopaque cholelithiasis or biliary dilatation. Adrenal glands: Withou t nodularity. Kidneys: No cholelithiasis or hydronephrosis bilaterally. No perinephric infla mmatory fat stranding. Pancreas: Unremarkable for technique. Spleen: Normal. Stomach/small b owel/large bowel: No obstruction. No active inflammation. Nonvisualization of the appendix , no secondary signs of acute appendicitis. Lymph nodes: No lymphadenopathy by CT size crite giuliano. Retroperitoneum: No masses or fluid collections. Vessels: Atherosclerotic calcification s of the aorta and arteries. No aneurysmal dilatation of the aorta. Pelvis: Urinary bladde r: Grossly Normal. Prior hysterectomy. No adnexal masses. Multiple phleboliths throughout th e pelvis. Bones: No fractures. Degenerative changes of the visualized spine. IMPRESSION - 1. No hydronephrosis or nephrolithiasis bilaterally. 2. No obstructive or inflammatory proce ss throughout the abdomen and pelvis. Nonvisualization of the appendix, no secondary signs o f acute appendicitis. Electronically signed by:Mook Rose MD Discussion: I Feel this patient probably has some renal colic. Her symptoms are very classic for that and on physical findings she does still have a mild amount of flank pain. I do not think he r urine is infected and I do think the blood represents passage of small stones or crystals. I've explained this to her. We will go ahead and have her hydrate well at home and keep h er on ketorolac for the next 5 days. I've asked her to strain the urine just to see if we c an capture a small stone. Home-going instructions: 1. Drink plenty of fluids 2. Toradol 10 mg every 6 hours for 5 days 3. Lortab 5-325 one to 2 every 4 hours as needed for pain 4. Return if the symptoms worsen otherwise followup with your primary care provider upon r eturning to [place]. Final diagnosis: Ureteral colic Cl Ventura MD 06/23/14 1013 Naveen Jurado PA-C - 06/23/2014 7:26 AM MDTFormatting of this note might be different fr om the original. History Chief Complaint Patient presents with Flank Pain The history is provided by the patient and the spouse. Right flank pain x4 days. Denies nausea vomiting or fever. She has had this pain occasion ally in the past. Describes the pain as achy and feels like it's inside. She did take a hy drocodone to get help initially but the pain is now continued and increased. No other recen t illnesses or injuries. Current active medications are atenolol Benicar Nexium Asacol. Previous Medications ACETAMINOPHEN (TYLENOL EX ST ARTHRITIS PAIN) 500 MG TABLET Take 500 mg by mouth Daily a s needed. ACYCLOVIR (ZOVIRAX) 800 MG TABLET Take 800 mg by mouth 2 times daily. ALBUTEROL SULFATE (PROVENTIL HFA IN) AERS 1 puff every 4-6 hours BUPROPION (WELLBUTRIN XL) 150 MG 24 HR TABLET Take 150 mg by mouth Daily. CALCIUM CARBONATE (CALCARB 600 PO) TABS Take one tablet twice daily CEPHALEXIN (KEFLEX) 500 MG CAPSULE Take 500 mg by mouth every 6 hours. DICLOFENAC (VOLTAREN XR) 100 MG TB24 Take 100 mg by mouth Daily. ESTRADIOL (ESTRACE) 2 MG TABLET Take 2 mg by mouth Daily. FLUTICASONE-SALMETEROL (ADVAIR DISKUS) 100-50 MCG/PUFF DISKUS INHALER 1 puff twice saúl y FOLIC ACID 1 MG TABLET Take 1 mg by mouth Daily. HYDROCODONE-ACETAMINOPHEN (VICODIN) 5-500 MG PER TABLET Take one tablet by mouth every 4-6 hours INOSITOL NIACINATE (NIACIN FLUSH FREE) 500 MG CAPS two by mouth every day LANSOPRAZOLE (PREVACID) [address] CAPSULE Take 30 mg by mouth Daily. MAGNESIUM OXIDE 400 MG CAPS Take 400 mg by mouth 2 times daily. MESALAMINE (ASACOL) [address] TABLET Take 400 mg by mouth 2 times daily. METOPROLOL SUCCINATE (TOPROL XL) 50 MG 24 HR TABLET Take 50 mg by mouth Daily. MONTELUKAST (SINGULAIR) 10 MG TABLET Take 10 mg by mouth Daily. OLMESARTAN (BENICAR) 20 MG TABLET Take one tablet by mouth daily - failed multiple medi cations in past able only to tolerate Benicar OMEGA-3 FATTY ACIDS (EQL FISH OIL) 1000 MG CAPS Take two capsules by mouth daily RIBOFLAVIN (B-2-400 PO) CAPS Take one capsule by mouth daily SUMATRIPTAN (IMITREX) 50 MG TABLET Take 50 mg by mouth Daily as needed. She is allergic to codeine sulfate; fentanyl; imipramine hcl; lovastatin; meperidine; oxyco done; ramipril; sulfa antibiotics; and trimethoprim hydrochloride.. Past Medical History Diagnosis Date Asthma Ulcerative colitis (HCC) Past Surgical History Procedure Date Tonsillectomy Hysterectomy Appendectomy No family history on file. History Social History Marital Status: Single Spouse Name: N/A Number of Children: N/A Years of Education: N/A Social History Main Topics Smoking status: Never Smoker Smokeless tobacco: Never Used Alcohol Use: Yes Comment: rare Drug Use: No Sexually Active: Other Topics Concern None Social History Narrative None Review of Systems Constitutional: Negative for fever, chills and diaphoresis. Respiratory: Negative. Cardiovascular: Negative. Gastrointestinal: Negative. Genitourinary: Positive for flank pain. Musculoskeletal: Negative. Skin: Negative. Neurological: Negative for dizziness, light-headedness and headaches. Syncope: Right side. Hematological: Negative. All other systems reviewed and are negative. Physical Exam BP 126/76 | Pulse 77 | Temp 36.4 C (97.6 F) | SpO2 97% Physical Exam Nursing note and vitals reviewed. Constitutional: She is oriented to person, place, and time. She appears well-developed and well-nourished. No distress. HENT: Head: Normocephalic and atraumatic. Eyes: Conjunctivae normal and EOM are normal. Pupils are equal, round, and reactive to ligh t. Neck: Normal range of motion. Cardiovascular: Normal rate, regular rhythm and normal heart sounds. Pulmonary/Chest: Effort normal and breath sounds normal. Abdominal: Soft. Bowel sounds are normal. She exhibits no distension. There is no tendernes s. There is no rebound. Musculoskeletal: Normal range of motion. Mild pain to percussion on the right flank area Neurological: She is alert and oriented to person, place, and time. Skin: Skin is dry. She is not diaphoretic. ED Course Procedures MDM Patient received normal saline 1000 cc bolus IV x1, Toradol 15 mg IV x1. CBC and CMP withi n normal limits with the exception of the GFR at 50. UA shows trace of blood otherwise norm al specific gravity 1.015. CT of the abdomen/pelvis has been ordered. Patient is currently resting comfortably. Care of the patient will be turned over to the oncoming emergency Department provider Dr. Cesar amaro. 1. Flank pain Naveen Coon PA-C 06/23/14 0854 Tdocumented in this encounter Miscellaneous Notes ED Triage Notes - Gayatri Edwards RN - 06/23/2014 7:13 AM MDTRight flank pain x 4 days. Owen es frequency, increased pain with voiding, fever or nausea lan of Care - ONCHAI JIMENEZ [facility] - 06/23/2014 1:00 AM MDTEl ectronically signed by Paulina Ingram at 06/25/2014 7:29 AM PDTdocumented in this encounter Plan of Treatment Not on filedocumented as of this encounter Procedures + +--------+ + + + | Procedure Name | Priori | Date/Time | Associated Diagnosis | Comments | | | ty | | | | + +--------+ + + + | CT ABDOMEN PELVIS WO | STAT | 06/23/2014 | | Results for this | | CONTRAST | | 8:58 AM | | procedure are in the | | | | MDT | | results section. | + +--------+ + + + | CBC WITH | STAT | 06/23/2014 | | Results for this | | DIFFERENTIAL | | 7:50 AM | | procedure are in the | | | | MDT | | results section. | + +--------+ + + + | COMPREHENSIVE | STAT | 06/23/2014 | | Results for this | | METABOLIC PANEL | | 7:50 AM | | procedure are in the | | | | MDT | | results section. | + +--------+ + + + | URINALYSIS, REFLEX | STAT | 06/23/2014 | | Results for this | | MICROSCOPIC AND/OR | | 7:30 AM | | procedure are in the | | CULTURE | | MDT | | results section. | + +--------+ + + + documented in this encounter Results CT Abdomen Pelvis wo Contrast (06/23/2014 8:58 AM MDT) + + | Specimen | + + | | + + + + + | Narrative | Performed At | + + + | EXAMINATION: CT Abdomen and Pelvis without Contrast | [facility] | | EXAMINATION DATE: June 23, 2014 REASON FOR EXAMINATION: Right | LAB | | flank pain. TECHNIQUE: Multiple, noncontrast, 5 mm, axial images | | | were obtained through the abdomen and pelvis. Subsequently, thin | | | section reconstructions were performed and sagittal and coronal | | | reformations were generated. CONTRAST: None COMPARISON: None | | | available. FINDINGS: Lung bases: Streaky opacities at the bases | | | suggestive of platelike atelectasis. Abdomen: Liver: Normal | | | by noncontrast CT standards. Gallbladder/biliary: No radiopaque | | | cholelithiasis or biliary dilatation. Adrenal glands: Without | | | nodularity. Kidneys: No cholelithiasis or hydronephrosis bilaterally. | | | No perinephric inflammatory fat stranding. Pancreas: Unremarkable | | | for technique. Spleen: Normal. Stomach/small bowel/large bowel: No | | | obstruction. No active inflammation. Nonvisualization of the | | | appendix, no secondary signs of acute appendicitis. Lymph nodes: No | | | lymphadenopathy by CT size criteria. Retroperitoneum: No masses or | | | fluid collections. Vessels: Atherosclerotic calcifications of the | | | aorta and arteries. No aneurysmal dilatation of the aorta. | | | Pelvis: Urinary bladder: Grossly Normal. Prior hysterectomy. No | | | adnexal masses. Multiple phleboliths throughout the pelvis. | | | Bones: No fractures. Degenerative changes of the visualized spine. | | | IMPRESSION - 1. No hydronephrosis or nephrolithiasis bilaterally. | | | 2. No obstructive or inflammatory process throughout the abdomen and | | | pelvis. Nonvisualization of the appendix, no secondary signs of acute | | | appendicitis. Electronically signed by:Mook Rose MD | | + + + + + | Procedure Note | + + | Dano, Rad Results In - 06/23/2014 9:39 AM MDT EXAMINATION: CT Abdomen and Pelvis | | without ContrastEXAMINATION DATE: June 23, 2014REASON FOR EXAMINATION: Right flank | | pain.TECHNIQUE: Multiple, noncontrast, 5 mm, axial images wereobtained through the | | abdomen and pelvis. Subsequently, thinsection reconstructions were performed and | | sagittal and coronalreformations were generated. CONTRAST: NoneCOMPARISON: None | | available.FINDINGS:Lung bases: Streaky opacities at the bases suggestive ofplatelike | | atelectasis. Abdomen:Liver: Normal by noncontrast CT standards.Gallbladder/biliary: No | | radiopaque cholelithiasis or biliarydilatation.Adrenal glands: Without | | nodularity.Kidneys: No cholelithiasis or hydronephrosis bilaterally. Noperinephric | | inflammatory fat stranding.Pancreas: Unremarkable for technique.Spleen: | | Normal.Stomach/small bowel/large bowel: No obstruction. No activeinflammation. | | Nonvisualization of the appendix, no secondarysigns of acute appendicitis.Lymph nodes: | | No lymphadenopathy by CT size criteria.Retroperitoneum: No masses or fluid | | collections.Vessels: Atherosclerotic calcifications of the aorta andarteries. No | | aneurysmal dilatation of the aorta.Pelvis:Urinary bladder: Grossly Normal.Prior | | hysterectomy. No adnexal masses. Multiple phlebolithsthroughout the pelvis.Bones: No | | fractures. Degenerative changes of the visualizedspine.IMPRESSION -1. No hydronephrosis | | or nephrolithiasis bilaterally.2. No obstructive or inflammatory process throughout the | | abdomenand pelvis. Nonvisualization of the appendix, no secondary signsof acute | | appendicitis.Electronically signed by:Mook Rose MD | | | |Liver: Normal by noncontrast CT standards. | |Gallbladder/biliary: No radiopaque cholelithiasis or biliary | |dilatation. | |Adrenal glands: Without nodularity. | |Kidneys: No cholelithiasis or hydronephrosis bilaterally. No | |perinephric inflammatory fat stranding. | |Pancreas: Unremarkable for technique. | |Spleen: Normal. | |Stomach/small bowel/large bowel: No obstruction. No active | |inflammation. Nonvisualization of the appendix, no secondary | |signs of acute appendicitis. | |Lymph nodes: No lymphadenopathy by CT size criteria. | |Retroperitoneum: No masses or fluid collections. | |Vessels: Atherosclerotic calcifications of the aorta and | |arteries. No aneurysmal dilatation of the aorta. | | | |Pelvis: | | | |Urinary bladder: Grossly Normal. | |Prior hysterectomy. No adnexal masses. Multiple phleboliths | |throughout the pelvis. | | | |Bones: No fractures. Degenerative changes of the visualized | |spine. | | | |IMPRESSION - | |1. No hydronephrosis or nephrolithiasis bilaterally. | |2. No obstructive or inflammatory process throughout the abdomen | |and pelvis. Nonvisualization of the appendix, no secondary signs | |of acute appendicitis. | | | |Electronically signed by:Mook Rose MD | + + + +---------+ + + | Performing | Address | City/State/Zipcode | Phone Number | | Organization | | | | + +---------+ + + | [facility] | | | [phone] | + +---------+ + + | [facility] | | | [phone] | + +---------+ + + Comprehensive Metabolic Panel (06/23/2014 7:50 AM MDT) + +--------+ + + + | Component | Value | Ref Range | Performed | Pathologist | | | | | At | Signature | + +--------+ + + + | Na | 137 | 136 - 145 | [facility] | | | | | mmol/L | [facility] | | | | | | LAB | | + +--------+ + + + | K | 4.1 | 3.5 - 5.0 | [facility] | | | | | mmol/L | [facility] | | | | | | LAB | | + +--------+ + + + | Cl | 101 | 98 - 110 mmol/L | [facility] | | | | [facility] | | | | | | LAB | | + +--------+ + + + | CO2 | 26 | 21 - 32 mmol/L | [facility] | | | | | | LAB | | + +--------+ + + + | Anion Gap | 10 | mmol/L | [facility] | | | | | | LAB | | + +--------+ + + + | Glucose | 98 | 68 - 110 mg/dL | [facility] | [facility] | | [facility] | | | | | | LAB | | + +--------+ + + + | BUN | 20 | 6 - 24 mg/dL | [facility] | | | | [facility] | | | | | | LAB | | + +--------+ + + + | Creatinine | 1.10 | 0.60 - 1.30 | [facility] | | | | | mg/dL | [facility] | | | | | | LAB | | + +--------+ + + + | eGFR, | 50 (L) | >=60 | [facility] | | | non- | | mL/min/1.73m2 | HOSPITAL | | | [place] | | | LAB | | + +--------+ + + + | Calcium | 9.6 | 8.4 - 10.0 | [facility] | | | | | mg/dL | [facility]ITAL | | | | | | LAB | | + +--------+ + + + | Albumin | 3.5 | 3.1 - 5.7 g/dL | [facility] | | | | | | [facility] | | | | | | LAB | | + +--------+ + + + | Bilirubin | 0.9 | 0.2 - 1.0 mg/dL | [facility] | | | Total | | | [facility]ITAL | | | | | | LAB | | + +--------+ + + + | Total | 7.4 | 6.1 - 8.4 g/dL | [facility] | | | Protein | | | [facility]PITAL | | | | | | LAB | | + +--------+ + + + | AST | 21 | 15 - 40 U/L | [facility] | | | | | | [facility] | | | | | | LAB | | + +--------+ + + + | ALT | 35 | 30 - 65 U/L | [facility] | | | | | [facility] | | | | | | LAB | | + +--------+ + + + | Alkaline | 94 | 50 - 136 U/L | [facility] | | | Phosphatase | | | [facility]OSPITAL | | | | | | LAB | | + +--------+ + + + | Globulin | 3.9 | g/dL | [facility] | | | | | | [facility] | | | | | | LAB | | + +--------+ + + + | Albumin/Urszula | 0.9 | | [facility] | | | bulin Ratio | | | [facility]OS[facility]ITAL | | | | | | LAB | | + +--------+ + + + | BUN/Creatin | 18.2 | 6.0 - 22.0 | [facility] | | | ine Ratio | | | [facility]OSPITAL | | | | | | LAB | | + +--------+ + + + + + | Specimen | + + | Blood | + + + + + + + | Performing | Address | City/State/Zipcode | Phone Number | | Organization | | | | + + + + + | [facility] | [address] [facility] | [place] [address] | [phone] | | LAB | | | | + + + + + CBC with Differential (06/23/2014 7:50 AM MDT) + + + + + + | Component | Value | Ref Range | Performed | Pathologist | | | | | At | Signature | + + + + + + | WBC | 8.0 | 4.5 - 11.0 | [facility] | | | | | 10*3/uL | HOSPITAL | | | | | | LAB | | + + + + + + | RBC | 4.91 | 3.80 - 5.20 | [facility] | | | | | 10*6/uL | HOSPITAL | | | | | | LAB | | + + + + + + | Hemoglobin | 14.1 | 13.0 - 16.0 | [facility] | | | | | g/dL | HOSPITAL | | | | | | LAB | | + + + + + + | Hct | 42.4 | 35.0 - 47.0 % | [facility] | | | | | | [facility] | | | | | | LAB | | + + + + + + | MCV | 86.4 | 80.0 - 100.0 fL | [facility] | | | | | | [facility] | | | | | | LAB | | + + + + + + | MCH | 28.7 | 25.4 - 34.6 pg | [facility] | | | | | | [facility] | | | | | | LAB | | + + + + + + | MCHC | 33.3 | 31.8 - 36.0 | [facility] | | | | | g/dL | HOSPITAL | | | | | | LAB | | + + + + + + | RDW-CV | 13.2 | 11.6 - 17.0 % | [facility] | | | | | | [facility] | | | | | | LAB | | + + + + + + | Platelet | 345 | 140 - 440 | [facility] | | | Count | | 10*3/uL | [facility]OSPITAL | | | | | | LAB | | + + + + + + | MPV | 9.7 | 0.0 - 14.5 fL | [facility] | | | | | | [facility] | | | | | | LAB | | + + + + + + | % | 57.6 | 37.0 - 80.0 % | [facility] | | | Neutrophils | | | HOSPITAL | | | | | | LAB | | + + + + + + | % | 21.9 | 10.0 - 50.0 % | [facility] | | | Lymphocytes | | | HOSPITAL | | | | | | LAB | | + + + + + + | % Monocytes | 14.4 (H) | 0.0 - 12.0 % | [facility] | | | | | | [facility] | | | | | | LAB | | + + + + + + | % | 4.9 | 0.0 - 7.0 % | [facility] | | | Eosinophils | | | HOSPITAL | | | | | | LAB | | + + + + + + | % Basophils | 0.6 | 0.0 - 2.0 % | [facility] | | | | | | [facility] | | | | | | LAB | | + + + + + + | % Immature | 0.6 (H) | 0.0 - 0.3 % | [facility] | | | Granulocyte | | | HOSPITAL | | | s | | | LAB | | + + + + + + | Absolute | 4.58 | 2.00 - 6.90 | [facility] | | | Neutrophils | | K/uL | HOSPITAL | | | | | | LAB | | + + + + + + | Absolute | 1.74 | 0.60 - 3.40 | [facility] | | | Lymphocytes | | K/uL | HOSPITAL | | | | | | LAB | | + + + + + + | Absolute | 1.15 (H) | 0.00 - 0.90 | [facility] | | | Monocytes | | K/uL | HOSPITAL | | | | | | LAB | | + + + + + + | Absolute | 0.39 | 0.00 - 0.70 | [facility] | | | Eosinophils | | K/uL | HOSPITAL | | | | | | LAB | | + + + + + + | Absolute | 0.05 | 0.00 - 0.20 | [facility] | | | Basophils | | K/uL | HOSPITAL | | | | | | LAB | | + + + + + + | Absolute | 0.05 (H) | 0.00 - 0.03 | [facility] | | | Immature | | K/UL | HOSPITAL | | | Granulocyte | | | LAB | | | s | | | | | + + + + + + + + | Specimen | + + | Blood | + + + + + + + | Performing | Address | City/State/Zipcode | Phone Number | | Organization | | | | + + + + + | [facility] | [address] | [place] [address] | [phone] | | LAB | | | | + + + + + Urinalysis, Reflex Microscopic and/or Culture (06/23/2014 7:30 AM MDT) + + + + + + | Component | Value | Ref Range | Performed | Pathologist | | | | | At | Signature | + + + + + + | Color, | Light Yellow | Light Yellow, | [facility] | | | Urine | | Yellow | HOSPITAL | | | | | | LAB | | + + + + + + | Clarity, | Clear | Clear | [facility] | | | Urine | | | HOSPITAL | | | | | | LAB | | + + + + + + | pH, Urine | 6.5 | 4.7 - 8.0 | [facility] | | | | | | [facility] | | | | | | LAB | | + + + + + + | Specific | 1.015 | 1.005 - 1.030 | [facility] | | | [place] | | | [facility]PITAL | | | Urine | | | LAB | | + + + + + + | Protein, | Negative | Negative | [facility] | | | Urine | | | HOSPITAL | | | | | | LAB | | + + + + + + | Blood, | Trace (A) | Negative | [facility] | | | Urine | | | HOSPITAL | | | | | | LAB | | + + + + + + | Glucose, | Negative | Negative, 100 | [facility] | | | Urine | | mg/dL | HOSPITAL | | | | | | LAB | | + + + + + + | Ketones, | Negative | Negative, >= 80 | [facility] | | | Urine | | mg/dL | HOSPITAL | | | | | | LAB | | + + + + + + | Bilirubin, | Negative | Negative | [facility] | | | Urine | | | HOSPITAL | | | | | | LAB | | + + + + + + | Nitrite, | Negative | Negative | [facility] | | | Urine | | | HOSPITAL | | | | | | LAB | | + + + + + + | Leukocyte | Negative | Negative | [facility] | | | Esterase, | | | HOSPITAL | | | Urine | | | LAB | | + + + + + + | Urobilinoge | 0.2 E.U./dL | 0.2 E.U./dL | [facility] | | | n, Urine | | E.U./dL | HOSPITAL | | | | | | LAB | | + + + + + + + + | Specimen | + + | Urine | + + + + + + + | Performing | Address | City/State/Zipcode | Phone Number | | Organization | | | | + + + + + | [facility] | [address] [facility] | [place] [address] | [phone] | | LAB | | | | + + + + + documented in this encounter Visit Diagnoses + + | Diagnosis | + + | Flank pain - Primary Abdominal pain, unspecified site | + + | Ureteral colic Renal colic | + + documented in this encounter Administered Medications + +--------+ +-------+------+------+ | Medication Order | MAR | Action | Dose | Rate | Site | | | Action | Date | | | | + +--------+ +-------+------+------+ | ketorolac (TORADOL) injection | Given | 06/23/20 | 15 mg | | | | 15 mg 15 mg, Intravenous, ONCE, | | 14 7:56 | | | | | 06/23/14 at 0800, For 1 dose | | AM MDT | | | | + +--------+ +-------+------+------+ +---+---+ | | | +---+---+ + +---------+ +--------+-------+---+ | sodium chloride 0.9% (NS) 1,000 | New Bag | 06/23/20 | 1,000 | 500 | | | mL bolus 1,000 mL, Intravenous, | | 14 8:02 | mLs | mL/hr | | | Administer over 2 Hours, ONCE, | | AM MDT | | | | | 06/23/14 at 0800, For 1 dose | | | | | | + +---------+ +--------+-------+---+ +---+---+ | | | +---+---+ documented in this encounter"
--- OUTSIDE RECORDS SUMMARY | ~2020-05-20 | XMS | Encounter Summary ---
Demographics + + + | Address | [address] | | | [place] [address] | + + + | Home Phone | | + + + | Preferred Language | Unknown | + + + | Marital Status | Single | + + + | Sabianist Affiliation | Unknown | + + + [...] Team Providers + +------+ + | Care Packing Supervisor Name | Role | Phone | + +------+ + PCP | Unavailable | + +------+ + Encounter Details +--------+ + + + + | Date | Type | Department | Care Team | Description | +--------+ + + + + | 06/08/ | [facility] | [facility] | Durga Bernabe MD | | | 2001 | Encounter | MED CTR GENERIC OP | [address] | | | | | CONV DEPT [address] | [address] [place] [address] | | | | | [place], | [address] | | | | | [place] [address] | | | | | | [phone] | | | +--------+ + + + [...]
--- OUTSIDE RECORDS SUMMARY | ~2020-05-20 | XMS | Encounter Summary ---
Demographics + + + | Address | [address] | | | [place] [address] | + + + | Home Phone | | + + + | Preferred Language | Unknown | + + + | Marital Status | Single | + + + | Restorationism Affiliation | Unknown | + + + | Race | White | + + + | Ethnic Group | Not or | + + + Author + + + | Author | [facility] | | | and [place] | + + + | Organization | [facility] | | | [...] Team Providers + +------+ + | Care Mat Maker Name | Role | Phone | + +------+ + PCP | Unavailable | + +------+ + Encounter Details +--------+ + + + + | Date | Type | Department | Care Team | Description | +--------+ + + + + | 08/30/ | Hospital | [facility] | | | | 2008 | Encounter | MED CTR XRAY [address] | | | | | | [address] | | | | | | [place] [address] | | | | | | [phone] | | | +--------+ + + + [...]
--- OUTSIDE RECORDS SUMMARY | ~2020-05-20 | XMS | Encounter Summary ---
Demographics + + + | Address | [address] | | | [place] [address] | + + + | Home Phone | | + + + | Preferred Language | Unknown | + + + | Marital Status | Single | + + + | Church Affiliation | Unknown | + + + | Race | White | + + + | Ethnic Group | Not or | + + + Author + + + | Author | [facility] | | | and [place] | + + + | Organization | [facility] | | | and [...] Team Providers + +------+ + | Care Tree Pruner Name | Role | Phone | + +------+ + PCP | Unavailable | + +------+ + Encounter Details +--------+ + + + + | Date | Type | Department | Care Team | Description | +--------+ + + + + | 02/20/ | Hospital | [facility] | | | | 1995 | Encounter | MED CTR MP INTRA OP | | | | | | [address] | | | | | | [place] | | | | | | [address] | | | | | | [phone] | | | +--------+ + + + [...]
--- OUTSIDE RECORDS SUMMARY | ~2020-05-20 | XMS | Encounter Summary ---
Demographics + + + | Address | [address] | | | [place] [address] | + + + | Home Phone | | + + + | Preferred Language | Unknown | + + + | Marital Status | Single | + + + | Yazidism Affiliation | Unknown | + + + | Race | White | + + + | Ethnic Group | Not or | + + + Author + + + | Author | [facility] | | | and [place] | + + + | Organization | [facility] | | | [...] Team Providers + +------+ + | Care Shipyard Painter Name | Role | Phone | + +------+ + | Shari Jensen MD | PCP | | + +------+ + Encounter Details +--------+ + + + + | Date | Type | Department | Care Team | Description | +--------+ + + + + | 08/01/ | Hospital | [facility] | | | | 2009 | Encounter | MED CTR LABORATORY | | | | | | [address] | | | | | | [place] | | | | | | [address] | | | | | | [phone] | | | +--------+ + + + [...] + + documented as of this encounter Medications at Time of Discharge [...]
--- OUTSIDE RECORDS SUMMARY | ~2020-05-20 | XMS | Encounter Summary ---
Demographics + + + | Address | [address] | | | [place] [address] | + + + | Home Phone | | + + + | Preferred Language | Unknown | + + + | Marital Status | Single | + + + | Scientology Affiliation | Unknown | + + + | Race | White | + + + | Ethnic Group | Not or | + + + Author + + + | Author | [facility] | | | and [place] | + + + | Organization | [facility] | | | [...] Team Providers + +------+ + | Care Splicing Technician Name | Role | Phone | + +------+ + PCP | Unavailable | + +------+ + Encounter Details +--------+ + + + + | Date | Type | Department | Care Team | Description | +--------+ + + + + | 03/08/ | Hospital | [facility] | | | | 2002 | Encounter | MED CTR LABORATORY | | | | | | [address] | | | | | | [place] | | | | | | [address] | | | | | | [phone] | | | +--------+ + + + [...]
--- OUTSIDE RECORDS SUMMARY | ~2020-05-20 | XMS | Clinical Summary ---
Demographics + + + | Address | [address] | | | [place] [address] | + + + | Home Phone [...] Author + + + | Author | [facility] | | | and [place] | + + + | Organization | [facility] | | | and [...] Team Providers + +------+ + | Care Sheet Rock Hanger Name | Role | Phone | + +------+ + | Shari Jensen MD | PCP | | + +------+ + Allergies + + + + + + | Active Allergy | Reactions | Severity | Noted | Comments | | | | | Date | | + + + + + + | Codeine Sulfate | | | | | + + + + + + | Fentanyl | | | | | + + + + + + | Imipramine Hcl | | | | | + + + + + + | Lovastatin | | | | | + + + + + + | Meperidine | | | | | + + + + + + | Oxycodone | Other (See Comments) | | 06/23/20 | hallucination | | | | | 14 | | + + + + + + | Ramipril | | | | | + + + + + + | Sulfa Antibiotics | | | | | + + + + + + | Trimethoprim | | | | | | Hydrochloride | | | | | + + + + + + Medications + + + +---------+------+------+-------+ | Medication | Sig | Dispensed | Refills | Star | End | Statu | | | | | | t | Date | s | | | | | | Date | | | + + + +---------+------+------+-------+ | [place]-3 Fatty | Take two capsules by | | 0 | 09/1 | | Activ | | Acids (EQL FISH OIL) | mouth daily | | | 3/20 | | e | | 1000 MG CAPS | | | | 12 | | | + + + +---------+------+------+-------+ | acetaminophen | Take 500 mg by mouth | | 0 | 09/1 | | Activ | | (TYLENOL EX ST | Daily as needed. | | | 3/20 | | e | | ARTHRITIS PAIN) 500 | | | | 12 | | | | mg tablet | | | | | | | + + + +---------+------+------+-------+ | montelukast | Take 10 mg by mouth | | 0 | 09/1 | | Activ | | (SINGULAIR) 10 mg | Daily. | | | 3/20 | | e | | tablet | | | | 12 | | | + + + +---------+------+------+-------+ | Albuterol Sulfate | AERS 1 puff every | | 0 | 09/1 | | Activ | | (PROVENTIL HFA IN) | 4-6 hours | | | 3/20 | | e | | | | | | 12 | | | + + + +---------+------+------+-------+ | | 1 puff twice daily | | 0 | 09/1 | | Activ | | fluticasone-salmeter | | | | 3/20 | | e | | ol (ADVAIR DISKUS) | | | | 12 | | | | 100-50 mcg/puff | | | | | | | | diskus inhaler | | | | | | | + + + +---------+------+------+-------+ | SUMAtriptan | Take 50 mg by mouth | | 0 | 09/1 | | Activ | | (IMITREX) 50 mg | Daily as needed. | | | 3/20 | | e | | tablet | | | | 12 | | | + + + +---------+------+------+-------+ | diclofenac | Take 100 mg by mouth | | 0 | 09/1 | | Activ | | (VOLTAREN XR) 100 mg | Daily. | | | 3/20 | | e | | TB24 | | | | 12 | | | + + + +---------+------+------+-------+ | lansoprazole | Take 30 mg by mouth | | 0 | 09/1 | | Activ | | (PREVACID) [address] | Daily. | | | 3/20 | | e | | capsule | | | | 12 | | | + + + +---------+------+------+-------+ | metoprolol | Take 50 mg by mouth | | 0 | 09/1 | | Activ | | succinate (TOPROL | Daily. | | | 3/20 | | e | | XL) 50 mg 24 hr | | | | 12 | | | | tablet | | | | | | | + + + +---------+------+------+-------+ | Magnesium Oxide | Take 400 mg by mouth | | 0 | 09/1 | | Activ | | 400 MG CAPS | 2 times daily. | | | 3/20 | | e | | | | | | 12 | | | + + + +---------+------+------+-------+ | folic acid 1 mg | Take 1 mg by mouth | | 0 | 09/1 | | Activ | | tablet | Daily. | | | 3/20 | | e | | | | | | 12 | | | + + + +---------+------+------+-------+ | | Take one tablet by | | 0 | 09/1 | | Activ | | HYDROcodone-acetamin | mouth every 4-6 | | | 3/20 | | e | | ophen (VICODIN) | hours | | | 12 | | | | 5-500 mg per tablet | | | | | | | + + + +---------+------+------+-------+ | acyclovir | Take 800 mg by mouth | | 0 | 09/1 | | Activ | | (ZOVIRAX) 800 mg | 2 times daily. | | | 3/20 | | e | | tablet | | | | 12 | | | + + + +---------+------+------+-------+ | Riboflavin | CAPS Take one | | 0 | 09/1 | | Activ | | (B-2-400 PO) | capsule by mouth | | | 3/20 | | e | | | daily | | | 12 | | | + + + +---------+------+------+-------+ | Calcium Carbonate | TABS Take one tablet | | 0 | 09/1 | | Activ | | (CALCARB 600 PO) | twice daily | | | 3/20 | | e | | | | | | 12 | | | + + + +---------+------+------+-------+ | estradiol | Take 2 mg by mouth | | 0 | 09/1 | | Activ | | (ESTRACE) 2 MG | Daily. | | | 3/20 | | e | | tablet | | | | 12 | | | + + + +---------+------+------+-------+ | Inositol Niacinate | two by mouth every | | 0 | 05/0 | | Activ | | (NIACIN FLUSH FREE) | day | | | 2/20 | | e | | 500 MG CAPS | | | | 11 | | | + + + +---------+------+------+-------+ | mesalamine | Take 400 mg by mouth | | 0 | 10/0 | | Activ | | (ASACOL) [address] | 2 times daily. | | | 5/20 | | e | | tablet | | | | 10 | | | + + + +---------+------+------+-------+ | olmesartan | Take one tablet by | | 0 | 10/0 | | Activ | | (BENICAR) 20 mg | mouth daily - failed | | | 520 | | e | | tablet | multiple | | | 10 | | | | | medications in past | | | | | | | | able only to | | | | | | | | tolerate Benicar | | | | | | + + + +---------+------+------+-------+ | cephalexin | Take 500 mg by mouth | | 0 | 11/0 | | Activ | | (KEFLEX) 500 mg | every 6 hours. | | | 9/20 | | e | | capsule | | | | 10 | | | + + + +---------+------+------+-------+ | buPROPion | Take 150 mg by mouth | | 0 | 05/0 | | Activ | | (WELLBUTRIN XL) 150 | Daily. | | | 2/20 | | e | | mg 24 hr tablet | | | | 11 | | | + + + +---------+------+------+-------+ | SORAfenib | Take 400 mg by mouth | | 0 | | | Activ | | (NEXAVAR) 200 mg | 2 times daily. | | | | | e | | tablet | | | | | | | + + + +---------+------+------+-------+ | | Take 1-2 tablets by | 20 | 0 | 10/0 | | Activ | | HYDROcodone-acetamin | mouth every 4 hours | tablet | | 1/20 | | e | | ophen (NORCO) 5-325 | as needed for Pain. 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 | + + + | Intractable chronic migraine without aura | 06/27/2010 | + + + + + | Overview: TERRIE [id number] Decision | + + + + + | GENERALIZED OSTEOARTHROSIS UNSPECIFIED SITE | 06/27/2010 | + + + | ALLERGIC RHINITIS | | + + + | HYPERTENSION | | + + + | MITRAL VALVE PROLAPSE | | + + + | 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 | | + + + Immunizations + + + + | Name | Administration Dates | Next Due | + + + + | PNEUMOCOCCAL | 03/25/2007 | | | POLYSACCHARIDE | | | | 23-VALENT (PPSV23) | | | + + + + | TD PF (2 LF TETANUS) | 09/23/1995 | | | (ADOL/ADULT) | | | + + + + | ZOSTER, 1 DOSE | 06/02/2009 | | | (ZOSTAVAX) | | | + + + + Social History + [...] on file | | + + + Last Filed Vital Signs + + + [...] + + + + | Weight | 68.5 kg (151 lb) | 01/22/2011 12:00 AM | | | | | PDT | | + + + + + | Height | - | - | | + + + + + | Body Mass Index | - | - | | + + + + + Plan of Treatment + + + + + | Health Maintenance | Due Date | Last | Comments | | | | Done | | + + + + + | Vaccine: | | 09/23/18 | | | Dtap/Tdap/Td (1 - | 6 | 96 | | | Tdap) | | | | + + + + + | Vaccine: Zoster (2 | | 06/02/20 | | | of 3) | 9 | 09 | | + + + + + | Vaccine: | | 03/25/20 | | | Pneumococcal 65+ (1 | 2 | 07 | | | of 1 - PPSV23) | | | | + + + + + | Breast Cancer | | 02/23/20 | | | Screening | 3 | 11 | | + + + + + | Vaccine: Influenza | | | | | (#1) | 0 | | | + + + + + Results Not on filefrom Last 3 Months Insurance + +--------+ +--------+-------+---------+--------+ | Payer | Benefi | Subscriber | Effect | Phone | Address | Type | | | t Plan | ID | dalia | | | | | | / | | Dates | | | | | | Group | | | | | | + +--------+ +--------+-------+---------+--------+ | MEDICARE OTHER | MEDICA | [id number] | | | | Medica | | | RE PPO | | [id number]-Pr | | | re | | | OTHER | | esent | | | | + +--------+ +--------+-------+---------+--------+ + +--------+ +--------+ + + | Guarantor Name | Accoun | Relation to | Date | Phone | Billing Address | | | t Type | Patient | of | | | | | | | | | | + +--------+ +--------+ + + | Lina Poole | Person | Self [birth year] | | | | al/Fam | | 1946 | [phone] | [place] [address] | | | cecilia | | | 3 (Home) | | + +--------+ +--------+ + + Advance Directives + + + + + | Type | Date Recorded | Patient | Explanation | | | | Vacuum Forming Machine Operator | | + + + + + | Power of | | | | | Panel Flow Machine Operator | | | | + + + + + | Advance | 06/23/2014 7:10 | | | | Directive | AM | | | + + + + +"
--- OUTSIDE RECORDS SUMMARY | ~2020-05-20 | XMS | Encounter Summary ---
Demographics + + + | Address | [address] | | | [place] [address] | + + + | Home Phone | | + + + | Preferred Language | Unknown | + + + | Marital Status | Single | + + + | Alevism Affiliation | Unknown | + + + | Race | White | + + + | Ethnic Group | Not or | + + + Author + + + | Author | [facility] | | | and [place] | + + + | Organization | [facility] | | | and [...] Team Providers + +------+ + | Care Battalion Chief Name | Role | Phone | + +------+ + PCP | Unavailable | + +------+ + Encounter Details +--------+ + + + + | Date | Type | Department | Care Team | Description | +--------+ + + + + | 01/22/ | Hospital | [facility] | | | | 1994 | Encounter | MED CTR GENERIC OP | | | | | | CONV DEPT [address] | | | | | | [address] [place], | | | | | | [place] [address] | | | | | | [phone] | | | +--------+ + + + [...]
--- OUTSIDE RECORDS SUMMARY | ~2020-05-20 | XMS | Encounter Summary ---
Demographics + + + | Address | [address] | | | [place] [address] | + + + | Home Phone | | + + + | Preferred Language | Unknown | + + + | Marital Status | Single | + + + | Yarsanism Affiliation | Unknown | + + + | Race | White | + + + | Ethnic Group | Not or | + + + Author + + + | Author | [facility] | | | and [place] | + + + | Organization | [facility] | | [...] Team Providers + +------+ + | Care Tape Calender Name | Role | Phone | + +------+ + | Shari Jensen MD | PCP | | + +------+ + Encounter Details +--------+ + + + + | Date | Type | Department | Care Team | Description | +--------+ + + + + | 06/05/ | Abstract | [facility] | [facility] | | | 2011 | | Conversion Location | SR | | | | | [address] | | | | | | [place], [place] | | | | | | [address] | | | | | | [phone] | | | +--------+ + + + [...] + + + | Blood Pressure | 120/62 | 01/22/2011 12:00 AM | | | | | PDT | | + + + + + | Pulse | - | - | | + + + + + | Temperature | - | - | | + + + + + | Respiratory Rate | - | - | | + + + + + | Oxygen Saturation | - | - | | + [...] + + + documented in this encounter Plan of Treatment Not on filedocumented as of this encounter Procedures + +--------+ + + + | Procedure Name | Priori | Date/Time | Associated Diagnosis | Comments | | | ty | | | | + +--------+ + + + | AGATA SCREENING | Routin | 02/22/2011 | | Results for this | | BILATERAL | e | 12:00 AM | | procedure are in the | | | | PDT | | results section. | + +--------+ + + + | ENDOSCOPY, COLON, | Routin | 08/08/2007 | | Results for this | | DIAGNOSTIC | e | 12:00 AM | | procedure are in the | | | | PST | | results section. | + +--------+ + + + | PAP SMEAR | Routin | 05/24/2006 | | Results for this | | | e | 12:00 AM | | procedure are in the | | | | PDT | | results section. | + +--------+ + + + documented in this encounter Results AGATA Screening Bilateral (02/22/2011 12:00 AM PDT) + + | Specimen | + + | | + + + + + | Narrative | Performed At | + + + | | | + + + ENDOSCOPY, COLON, DIAGNOSTIC (08/08/2007 12:00 AM PST) + + | Specimen | + + | | + + + + + | Narrative | Performed At | + + + | | | + + + Pap Smear (05/24/2006 12:00 AM PDT) + + | Specimen | + + | | + + + + + | Narrative | Performed At | + + + | | | + + + documented in this encounter Visit Diagnoses Not on filedocumented in this encounter"
--- OUTSIDE RECORDS SUMMARY | ~2020-05-20 | XMS | Encounter Summary ---
Demographics + + + | Address | [address] | | | [place] [address] | + + + | Home Phone | | + + + | Preferred Language | Unknown | + + + | Marital Status | Single | + + + | Sabianism Affiliation | Unknown | + + + | Race | White | + + + | Ethnic Group | Not or | + + + Author + + + | Author | [facility] | | | and [place] | + + + | Organization | [facility] | | [...] Team Providers + +------+ + | Care Chemical Processing Laborer Name | Role | Phone | + +------+ + PCP | Unavailable | + +------+ + Encounter Details +--------+ + + + + | Date | Type | Department | Care Team | Description | +--------+ + + + + | 03/25/ | Hospital | [facility] | | | | 2006 | Encounter | MED CTR LABORATORY | | | | | | [address] | | | | | | [place] | | | | | | [address] | | | | | | [phone] | | | +--------+ + + + [...]
--- OUTSIDE RECORDS SUMMARY | ~2020-05-20 | XMS | Encounter Summary ---
Demographics + + + | Address | [address] | | | [place] [address] | + + + | Home Phone | | + + + | Preferred Language | Unknown | + + + | Marital Status | Single | + + + | Anabaptist Affiliation | Unknown | + + + | Race | White | + + + | Ethnic Group | Not or | + + + Author + + + | Author | [facility] | | | and [place] | + + + | Organization | [facility] | | | [...] Team Providers + +------+ + | Care Sed Middle School Teacher Name | Role | Phone | + +------+ + PCP | Unavailable | + +------+ + Encounter Details +--------+ + + + + | Date | Type | Department | Care Team | Description | +--------+ + + + + | 08/08/ | [facility] | [facility] | Durga Bernabe MD | | | 2006 | Encounter | MED [facility] GENER[facility] OP | [address] | | | | | CONV DEPT [address] | | | | | [place], | [id number] | | | | | [place] [address] | | | | | | [phone] | | | +--------+ + + + [...]
[~2020-05-20 18:00] MED LIST changes: +ALLOPURINOL100 MG PO; +HYDROMORPHONE HC4 MG PO; +IMITREX50 MG PO; +L-LYSINE500 M1 PO; +PROAIR HFA8.5 GM INH; +SUCRALFATE1 GM PO; +ZOVIRAX400 MG PO
[2020-05-20] MEDS ORDERED: LANSOPRAZOLE30 MG PO (18:13)
== END 2020-05-20 19:20 | disposition home or self-care (01) ==
LOC: ED 18:00
DX: S91.312A Laceration without foreign body, left foot, initial encounter (principal); I10 Essential (primary) hypertension; J45.909 Unspecified asthma, uncomplicated; Z88.1 Allergy status to other antibiotic agents; Z88.5 Allergy status to narcotic agent; Z88.2 Allergy status to sulfonamides; Z79.899 Other long term (current) drug therapy; W25.XXXA Contact with sharp glass, initial encounter
CPT/HCPCS: 12002; 90471; 90715; 99282-25

== ENCOUNTER 2020-08-10 05:45 | Day surgery (SDC) | payer MEDICARE ==
[~2020-08-10] VITALS: Ht 160 cm; Wt 71.4 kg
--- NOTE | ~2020-08-10 | OR ---
[facility] [address] [place] [address] Draft DATE OF OPERATION: 08/10/2020 SURGEON: Tato Rabago DPM PREOPERATIVE DIAGNOSES: 1. Soft tissue mass, subcutaneous tissue, left lower limb. 2. 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 3. Arzola's neuroma, 3rd intermetatarsal space, right foot. POSTOPERATIVE DIAGNOSES: 1. Soft tissue mass, subcutaneous tissue, left lower limb. 2. 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 3. Arzola's neuroma, 3rd intermetatarsal space, right foot. PROCEDURES: 1. Excision of soft tissue mass, left lower limb. 2. Injection of steroid solution into bilateral Arzola's neuroma area. ARTIST SCIENTIFIC: Jacob Smiley DPM NURSE [employer] FINANCIAL DEVELOPER: Jacob Sanchez. ANESTHESIA: Local with MAC consisting of 12 mL of 1:1 mix of 0.5% ropivacaine and 2% lidocaine plain. HEMOSTASIS: With an ankle tourniquet. ESTIMATED BLOOD LOSS: Less than 5 mL or minimal. MATERIALS UTILIZED: 4-0 Vicryl and 5-0 nylon. INJECTIONS: 0.3 mL of Kenalog 40 mixed with 1 mL of 0.5% ropivacaine. PROCEDURE IN DETAIL: PATIENT NAME: JOLIE HANLEY SASHA OPERATIVE REPORT DATE OF : 47 REPORT #: [id number] PHYSICIAN: TATO RABAGO DPM PCP: MEENU RODRIGUEZ MD REPORT IS CONFIDENTIAL AND NOT TO BE RELEASED WITHOUT AUTHORIZATION [facility] [address] [place], [place] [address] Draft The patient was brought into the operating room and placed upon the operating table in the supine position. Following IV sedation, the patient's left foot was injected with above local anesthesia along the lateral aspect of the patient's left ankle. The patient was also given injections into the neuroma areas consisting of 0.3 mL of Kenalog 40, each mixed with local anesthesia 1 mL. This was given into the bilateral 3rd intermetatarsal space area. The patient's left foot was then scrubbed, prepped and draped in the usual sterile technique. An Esmarch bandage was then utilized to exsanguinate the patient's left lower extremity. This was wrapped around the ankle to act as tourniquet. Attention was then directed to the area just distal and anterior to the lateral malleoli where prominent fatty feeling soft tissue lump was noted. Approximately, 4 cm semi-curved incision was performed from proximal medial to plantar lateral across the soft tissue lump area that was located just anterior distal to the lateral ankle gutter. Careful dissection down to the subcutaneous tissue was performed. At this time, a prominent yellow fatty-appearing mass was identified. Careful dissection was performed utilizing a curved tenotomy freeing the soft tissue attachments around the lesion area. An Allis forceps was utilized to retract the lesion to resect the soft tissue attachment on the deep side of the lesion. The lesion rested on the deep fascia on the bottom aspect and then also was within subcutaneous tissue levels on the superficial aspects of it. The mass itself was approximately 3 cm in diameter. The majority of this lesion was removed intact and sent to the back table for pathology. Allis was utilized to remove any remaining edges of this soft tissue lump, which again have the appearance of a fatty tumor. The area was then flushed with copious amounts of sterile normal saline. 3-0 Vicryl was utilized to re-approximate the integument in the corners of the wound and 5-0 Nylon in the continuous inter-locking suture technique was utilized to close the soft tissue, integument over the surgical site in the remote lesion area. Postoperative injection consisting of 5 mL of 0.5% ropivacaine and 1 mL of dexamethasone phosphate was injected proximal and distal to the surgical site. Surgical site was then dressed with silver foam dressing followed by light gauze to act as a pressure bandage. Rolled gauze was then applied followed by Coban. Coban was applied in a manner to help provide additional support onto the lateral aspect of the foot to help prevent inversion. Ankle tourniquet was removed. Prompt hyperemic response was noted in all digits of the patient's left foot. The patient had tolerated both the procedure and the anesthesia well and was then escorted to the recovery area by the Anesthesia department with vital signs stable. Following a period of postoperative monitoring, the patient was discharged to home with both written and oral instructions. Tato Rabago DPM PATIENT NAME: JOLIE HANLEY SASHA OPERATIVE REPORT DATE OF : 47 REPORT #: [id number] PHYSICIAN: TATO RABAGO DPM PCP: MEENU RODRIGUEZ MD REPORT IS CONFIDENTIAL AND NOT TO BE RELEASED WITHOUT AUTHORIZATION [address] [address] Draft /[facility] /[id number] Copies: ~ PATIENT NAME: JOLIE HANLEY OPERATIVE REPORT DATE OF : 47 REPORT #: [id number] PHYSICIAN: TATO RABAGO DPM PCP: MEENU RODRIGUEZ MD REPORT IS CONFIDENTIAL AND NOT TO BE RELEASED WITHOUT AUTHORIZATION
--- NOTE | 2020-08-10 22:38 | EKG ---
[facility] [address] [facility] [place] [address] Signed Normal sinus rhythm Incomplete right bundle branch block Borderline ECG When compared with ECG of 13-AUG-2017 10:41, Incomplete right bundle branch block is now present Minimal criteria for Anterior infarct are no longer present Confirmed by FRANCESCO FELDER MD ([id number] on 08/10/2020 10:38:07 PM Electronically Signed By: FRANCESCO FELDER MD 08/10/20 2238 PATIENT NAME: JOLIE HANLEY SASHA Electrocardiogram DATE OF : 47 PHYSICIAN: FRANCESCO FELDER MD REPORT #: [id number] REPORT IS CONFIDENTIAL AND NOT TO BE RELEASED WITHOUT AUTHORIZATION
--- NOTE | 2020-08-11 14:51 | PATH ---
[facility] [address] [facility] [place], [place] [address] Signed SPECIMEN(S): A LEFT ANKLE SPECIMEN SOURCE: A. LEFT ANKLE CLINICAL HISTORY: Left ankle soft tissue mass. FINAL PATHOLOGIC DIAGNOSIS: Left ankle, soft tissue mass, excision: - Lobulated adipose tissue, consistent with lipoma. JVR:cml:C2NR MICROSCOPIC EXAMINATION: Histologic sections of all submitted blocks are examined by light microscopy. These findings, together with the gross examination, support the pathologic diagnosis. GROSS DESCRIPTION: The specimen, labeled "KAREN," and designated on the requisition "left ankle soft tissue mass," is received in formalin and consists of a portion of yellow-bhatt soft tissue (4.0 x 3.8 x 1.5 cm). The specimen is serially sectioned to reveal a yellow-bhatt, lobulated fatty cut surface. [employer] sections are submitted in cassette (A1). AC (under the direct supervision of a pathologist) The Gross Description was prepared using a voice recognition system. The report was reviewed for accuracy; however, sound-alike word errors, addition and/or deletions may occur. If there is any question about this report, please contact Client Services. PERFORMING LABORATORY: The technical component was performed by [employer], [address] [place] [address] (Claims Agent Right Of Way: Cyndy Miramontes MD; CLIA# [id number]). Professional interpretation was performed by [employer], [facility], [address] [place] [id number] (Claims Agent Right Of Way: Derek Ellis M.D.). Diagnostician: Derek Ellis MD Pathologist Electronically Signed 08/11/2020 PATIENT NAME: JOLIE HANLEY PATHOLOGY DATE OF : 47 REPORT #: [id number] PHYSICIAN: [facility] PCP: MEENU RODRIGUEZ MD REPORT IS CONFIDENTIAL AND NOT TO BE RELEASED WITHOUT AUTHORIZATION [address] [address] Signed Copies: ~ PATIENT NAME: JOLIE HANLEY PATHOLOGY DATE OF : 47 REPORT #: [id number] PHYSICIAN: [facility] PCP: MEENU RODRIGUEZ MD REPORT IS CONFIDENTIAL AND NOT TO BE RELEASED WITHOUT AUTHORIZATION
== END 2020-08-10 09:22 | disposition home or self-care (01) ==
LOC: DS 05:45 → OPS 05:45 → DS 06:45 → OPS 06:45
PROVIDERS: ATTEND Podiatrist Foot & Ankle Surgery
PROC: 3E0T33Z Introduction of Anti-inflammatory into Peripheral Nerves and Plexi, Percutaneous Approach (ICD-10-PCS; 2020-08-10)
PROC: 0JBP0ZZ Excision of Left Lower Leg Subcutaneous Tissue and Fascia, Open Approach (ICD-10-PCS; principal; 2020-08-10 06:45)
DX: L98.8 Other specified disorders of the skin and subcutaneous tissue (principal); G57.63 Lesion of plantar nerve, bilateral lower limbs; I10 Essential (primary) hypertension; E78.00 Pure hypercholesterolemia, unspecified; J45.909 Unspecified asthma, uncomplicated; Z88.0 Allergy status to penicillin; Z88.2 Allergy status to sulfonamides; Z88.5 Allergy status to narcotic agent; Z88.8 Allergy status to other drugs, medicaments and biological substances; Z91.048 Other nonmedicinal substance allergy status; Z91.040 Latex allergy status; Z79.899 Other long term (current) drug therapy
CPT/HCPCS: 00300; 93005; 93010; J1100; J1885; J2001; J2704; J2795; J3301; J7121

== ENCOUNTER 2022-06-26 06:09 | Day surgery (SDC) | payer MEDICARE ==
[~2022-06-26] VITALS: Ht 160 cm; Wt 72.7 kg
[~2022-06-26 06:09] MED LIST changes: +OLMESARTAN MEDO20 MG PO
--- NOTE | 2022-06-26 08:05 | NUR ---
06/26/22 0805 Genny Braxton 0758 PT ARRIVED TO PACU ON 2L VIA MASK, VSS. PT WAKES EASILY AND DENIES PAIN AND EASILY FALLS BACK SLEEP. 0803 O2 TURNED OFF.
--- NOTE | 2022-06-26 17:55 | OR ---
[facility] [address] [place], [place] [address] Signed DATE OF OPERATION: 06/26/2022 SURGEON: Miguel Mason MD PREOPERATIVE DIAGNOSIS: History of polyps (2015, tubular adenoma). POSTOPERATIVE DIAGNOSES: 1. Sigmoid diverticulosis. 2. Polyps x2, 60 cm and 40 cm. PROCEDURE: Total colonoscopy to cecum with cold morcellation polypectomy x2. ANESTHESIA: Intravenous sedation; propofol infusion; Leyda Napier CRNA. INDICATION: A 76-year-old white woman, patient of Dr. Rodriguez, known to me from the past having undergone repair as well as a distant history of ulcerative colitis, which apparently resolved. In 2014, she underwent colonoscopy which showed a tubular adenoma. She is symptom-free at this time. She is admitted to undergo colonoscopy. She understands the risk of bleeding, infection, and perforation. FINDINGS: The prep was excellent. Complete colonoscopy was undertaken to the cecum without question. She had diverticula of the sigmoid. There are two small polyps, one of them hyperplastic. Both were excised. DESCRIPTION OF PROCEDURE: The patient was brought to the endoscopy suite and placed in lateral decubitus position, given intravenous sedation with propofol infusional technique based on an ASA classification of 3. Digital rectal examination was normal. An Olympus video colonoscope was passed in the rectum and manipulated into the sigmoid where a diverticulosis was noted. The scope was advanced beyond this ultimately to the cecum. The ileocecal valve and appendiceal orifice were normal. Mucosa was elevated from behind the ileocecal valve, identifying it as normal as well. The scope was then withdrawn and examination undertaken. At approximately 60 cm from the anal verge was a small polyp probably hyperplastic. This was excised with cold morcellation technique Electronically Signed By: MIGUEL MASON MD 06/26/22 1755 PATIENT NAME: JOLIE HANLEY OPERATIVE REPORT DATE OF : 47 REPORT #: [id number] PHYSICIAN: MIGUEL MASON MD PCP: MEENU RODRIGUEZ MD REPORT IS CONFIDENTIAL AND NOT TO BE RELEASED WITHOUT AUTHORIZATION [facility] [address] [place], [place] [address] Signed completely. The scope was further withdrawn and at 40 cm there was another polyp more likely a tubular adenoma. This was excised with cold morcellation technique as well. The scope was further withdrawn, noting only diverticulosis. Retroflexed view of the rectum was normal. Scope was removed and the patient was taken to the recovery room in good condition. CONCLUDING DIAGNOSIS: Diverticulosis and polyps x3. PLAN: Recommend repeat colonoscopy in 5 to 10 years per patient preference, sooner if clinically indicated. She will return to the ongoing care of Dr. Rodriguez otherwise. MD [facility]UZ [facility] /[id number] cc: Meenu Rodriguez MD Copies: MEENU RODRIGUEZ MD ~ Electronically Signed By: MIGUEL MASON MD 06/26/22 1755 PATIENT NAME: JOLIE HANLEY OPERATIVE REPORT DATE OF : 47 REPORT #: [id number] PHYSICIAN: MIGUEL MASON MD PCP: MEENU RODRIGUEZ MD REPORT IS CONFIDENTIAL AND NOT TO BE RELEASED WITHOUT AUTHORIZATION
--- NOTE | 2022-06-27 11:28 | PATH ---
[facility] [address] [place], [place] [address] Signed SPECIMEN(S): A COLON HYPERPLASTIC POLYP AT 60 CM SPECIMEN(S): B COLON POLYP AT 30 CM SPECIMEN SOURCE: A. COLON HYPERPLASTIC POLYP AT 60 CM B. COLON POLYP AT 30 CM CLINICAL HISTORY: Colonoscopy. History of polyps. Postop: Polyps x 2, diverticulosis. FINAL PATHOLOGIC DIAGNOSIS: A. Colon polyp at 60 cm, polypectomy: - Fragments of hyperplastic polyp. B. Colon polyp at 30 cm, polypectomy: - Fragments of hyperplastic polyp. DF:cml:C2NR MICROSCOPIC EXAMINATION: Histologic sections of all submitted blocks are examined by light microscopy. These findings, together with the gross examination, support the pathologic diagnosis. GROSS DESCRIPTION: Two specimens are received in two containers labeled with "KAREN." A. The specimen, labeled "KAREN, 1," and designated on the requisition "hyperplastic colon polypectomy at 60 cm," is received in formalin and consists of four fragments of pink-bhatt tissue (0.2-0.3 cm in greatest dimension). The specimen is submitted entirely in cassette (A1). B. The specimen, labeled "KAREN, 2," and designated on the requisition "colon polypectomy at 30 cm," is received in formalin and consists of two fragments of pink-bhatt tissue (0.3-0.6 cm in greatest dimension). The specimen is submitted entirely in cassette (B1). AC (under the direct supervision of a pathologist) The Gross Description was prepared using a voice recognition system. The report was reviewed for accuracy; however, sound-alike word errors, addition and/or deletions may occur. If there is any question about this report, please contact Client Services. PERFORMING LABORATORY: The technical component was performed by [employer], [address] [place] [id number] (CLIA# [id number]). Professional interpretation was PATIENT NAME: JOLIE HANLEY PATHOLOGY DATE OF : 47 REPORT #: [id number] PHYSICIAN: [facility] PCP: MEENU RODRIGUEZ MD REPORT IS CONFIDENTIAL AND NOT TO BE RELEASED WITHOUT AUTHORIZATION [facility] [address] [place], [place] [address] Signed performed by [facility], [facility], [address] [place] [address] (CLIA#: [id number]) Diagnostician: Ranjit Ball DO Pathologist Electronically Signed 06/27/2022 Copies: ~ PATIENT NAME: JOLIE HANLEY PATHOLOGY DATE OF : 47 REPORT #: [id number] PHYSICIAN: [facility] PCP: MEENU RODRIGUEZ MD REPORT IS CONFIDENTIAL AND NOT TO BE RELEASED WITHOUT AUTHORIZATION
--- NOTE | 2022-06-29 15:14 | EKG ---
[facility] [address] [facility] [place] [address] Signed Normal sinus rhythm RSR' or QR pattern in V1 suggests right ventricular conduction delay Borderline ECG When compared with ECG of 20-JUN-2022 10:07, Sinus rhythm has replaced Junctional rhythm ST no longer elevated in Inferior leads Confirmed by Bj Hurtado MD () on 06/29/2022 3:13:57 PM Electronically Signed By: BJ HURTADO MD 06/29/22 1514 PATIENT NAME: JOLIE HANLEY SASHA Electrocardiogram DATE OF : 47 PHYSICIAN: BJ HURTADO MD REPORT #: [id number] REPORT IS CONFIDENTIAL AND NOT TO BE RELEASED WITHOUT AUTHORIZATION
== END 2022-06-26 08:33 | disposition home or self-care (01) ==
LOC: DS 06:09 → OPS 06:09 → DS 07:30 → OPS 07:30 → DS 08:15 → OPS 08:33 → DS 08:45 → OPS 11:00 → DS 11:00
PROVIDERS: ATTEND Surgery
PROC: 0DBE8ZZ Excision of Large Intestine, Via Natural or Artificial Opening Endoscopic (ICD-10-PCS; principal; 2022-06-26 07:30)
DX: K63.5 Polyp of colon (principal); K57.30 Diverticulosis of large intestine without perforation or abscess without bleeding; K21.9 Gastro-esophageal reflux disease without esophagitis; J45.990 Exercise induced bronchospasm; I10 Essential (primary) hypertension; Z87.19 Personal history of other diseases of the digestive system; Z86.16 Personal history of COVID-19; Z98.890 Other specified postprocedural states
CPT/HCPCS: 88305; 93005; 93010; J2704; J7121

== ENCOUNTER 2024-03-09 10:43 | Day surgery (SDC) | payer MEDICARE ==
[~2024-03-09] VITALS: Ht 160 cm; Wt 69.5 kg
[~2024-03-09 10:43] MED LIST changes: +AMLODIPINE BESYL5 MG PO; +CEFAZOLIN SODIUM 2 GM/20 ML SYR IV SCH; +IBLOOD GLUCOSE TEST STRIP 1 EA TEST VI PRN; +LACTATED RINGER'S 1,000 ML IV SCH; +LIDOCAINE HCL 1% 5 ML SDV INJ ONE; +TRANEXAMIC ACID 2,000 MG in SODIUM CHLORIDE 0.9% 100 ML IV SCH
[2024-03-09 11:09] VITALS: BP 138/61
[2024-03-09] MEDS ORDERED: Ropivacaine HCl 0.5% 30 ML VIAL ONE (11:47)
[2024-03-09] MEDS ORDERED: propofoL 200 MG/20 ML VIAL ONE (11:47)
[2024-03-09] MEDS ORDERED: DEXAMETHASONE SOD PHOS 4 MG/ML VIAL ONE ×2 (11:47→12:50)
[2024-03-09] MEDS ORDERED: LIDOCAINE HCL 2% 5 ML SDV ONE ×2 (11:47→12:49)
[2024-03-09] MEDS ORDERED: HYDROCODONE/ACETA 7.5/325 TAB PO PRN (12:45)
[2024-03-09] MEDS ORDERED: NALOXONE HCL 0.4 MG SYR IV PRN (12:45)
[2024-03-09] MEDS ORDERED: KETOROLAC TROMETHAMINE 15 MG/ML VIAL IV PRN (12:45)
[2024-03-09] MEDS ORDERED: dexmedeTOMIDine HCl 200 MCG/2 ML VIAL ONE (13:10)
[2024-03-09] MEDS ORDERED: ACETAMINOPHEN 1,000 MG/100 ML VIAL ONE (13:21)
[2024-03-09] MEDS ORDERED: HYDROCODON-ACE1 EA11 PO (13:43)
--- NOTE | 2024-03-09 13:55 | NUR ---
03/09/24 1355 Lissa Coyle 1343- PT ARRIVES TO PACU EASILY AROUSABLE TO VOICE. PT REPORTS NO PAIN OR NAUSEA. RESP EVEN AND UNLABORED. OXYGEN SAT LOW TO MID 90'S ON RA. 1352- PT REMAINS AROUSABLE TO VOICE. PT DENIES ANY PAIN OR NAUSEA. 1354- PT PROVIDED ICE WATER PER HER REQUEST. PT TOLERATING WELL.
[2024-03-09 14:41] VITALS: BP 147/60
--- NOTE | 2024-03-09 15:00 | NUR ---
1433- PT ARRIVES TO DAY SURGERY FROM PACU ALERT AND ORIENTED. PT PROVIDED CHOCOLATE PUDDING AND CAROLIN CRACKERS. PT CONTINUES SIPPING ON ICE WATER. 1445- PT AMBULATED TO THE RESTROOM AND BACK TO BED. PT WAS ABLE TO URINATE 450 ML OF CLEAR YELLOW URINE. CRYOCUFF REPLACED WITH BARRIER. PT SITTING UP IN BED EATING SNACKS. BLANKETS PROVIDED FOR PT COMFORT. CALL LIGHT WITH PT. PT UPDATED ON PLAN OF CARE AND REQUIREMENTS TO BE DISCHARGED HOME. PT STATES UNDERSTANDING.
[2024-03-09 15:39] VITALS: BP 136/61
--- NOTE | 2024-03-09 16:29 | NUR ---
1539- DISCHARGE INSTRUCTIONS PROVIDED TO PT. DR. LÓPEZ INSTRUCTIONS FOR POST-OPERATIVE SHOULDER SURGERY DISCUSSED WITH PT LINE BY LINE. ALL QUESTIONS ANSWERED. 1548- PT ASSISTED WITH GETTING DRESSED. PT DOES NOT HAVE CONTROL OVER RIGHT ARM, REPORTS TINGLING IN HER FINGERS. CAN MOVE HER FINGERS SLIGHTLY. CAP REFILL <1. PT HAD A NERVE BLOCK. PT ASSISTED WITH PLACEMENT OF SHOULDER IMMOBILIZER AND SHOWN HER TO USE IT. PT STATES UNDERSTANDING. 1600- PT TAKEN TO THE FRONT OF THE HOSPITAL TO MEET HER FRIEND. PT INTO THE PASSENGER SIDE OF THE VEHICLE. CRYOCUFF WITH PLUG IN PLACED IN CRYOCUFF BOX AND IN THE BACK SEAT OF THE VEHICLE. PT THANKFUL FOR HER CARE.
--- NOTE | 2024-03-10 07:33 | OR ---
[facility] [address] [place], [place] [address] Signed DATE OF OPERATION: 03/09/2024 SURGEON: Johny Aragon MD PREOPERATIVE DIAGNOSIS: Rotator cuff tear, right shoulder. POSTOPERATIVE DIAGNOSES: 1. Rotator cuff tear, right shoulder. 2. Degenerative joint disease, right glenohumeral joint. PROCEDURE PERFORMED: Right shoulder arthroscopy with rotator cuff repair. BACKHOE OPERATOR: Yanira Triplett PA-C. Yanira was present and critical for all portions of procedure. ANESTHESIA: General. BLOOD LOSS: Minimal. IMPLANTS: One 4.75 SwiveLock. BRIEF HISTORY: Enma is a 78-year-old female with pain and weakness in her shoulder. MRI was consistent with the rotator cuff tear. Risks, benefits, and alternatives of operative repair were discussed with her and she elected to proceed. DESCRIPTION OF PROCEDURE: Once consent was obtained, she was taken to the operating room. After adequate anesthesia, she was placed in a beach chair position. All downside pressure points were well padded. She did have some weird positioning of her fingers with spasms in both hands and she was laid back down into a supine position. Her pupils were checked and found to be equal and reactive. No other worsened signs were noted back into the beach chair position. She did fine. The shoulder was then prepped and draped in a standard sterile fashion. The shoulder was injected with 15 mL of 0.25% Marcaine with Electronically Signed By: JOHNY ARAGON MD 03/10/24 0733 PATIENT NAME: JOLIE HANLEY OPERATIVE REPORT DATE OF : 47 REPORT #: [id number] PHYSICIAN: JOHNY ARAGON MD PCP: DONTE GRACE MD REPORT IS CONFIDENTIAL AND NOT TO BE RELEASED WITHOUT AUTHORIZATION [facility] [address] [place] [address] Signed epinephrine as was subacromial space. The standard posterior portal was made. The scope was introduced through the shoulder. 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 There was grade 3 chondromalacia on the glenoid side. Biceps, biceps anchor, and labrum were intact. The subscapularis was intact. There was a 1 cm tear in the supraspinatus anterior margin just posterior to the biceps. This was a full-thickness tear. The remainder of the rotator cuff was intact. DESCRIPTION OF OPERATION: Diagnostic arthroscopy was undertaken as noted above. The anterolateral portal was then established overlying the rotator cuff tear and the shaver was brought in and the rotator cuff was debrided as was the footprint. Good decortication was obtained. A FiberTape suture was then placed in inverted mattress configuration and a 4.75 SwiveLock was placed in the tuberosity and the rotator cuff was tightened down to its footprint. Excellent apposition was obtained. The bone and rotator cuff both showed good bleeding at the end of the procedure. The sutures were cut off and the shoulder was taken through range of motion and found to be stable. The scope was withdrawn. Portals were closed with 3-0 nylon and dressed with Allevyn and OpSite. She tolerated the procedure well. All sponge, needle, and instrument counts were correct. Johny Aragon MD [facility] /[id number] Copies: ~ Electronically Signed By: JOHNY ARAGON MD 03/10/24 0733 PATIENT NAME: JOLIE HANLEY SASHA OPERATIVE REPORT DATE OF : 47 REPORT #: [id number] PHYSICIAN: JOHNY ARAGON MD PCP: DONTE GRACE MD REPORT IS CONFIDENTIAL AND NOT TO BE RELEASED WITHOUT AUTHORIZATION
== END 2024-03-09 16:00 | disposition home or self-care (01) ==
LOC: DS 10:43
PROVIDERS: ATTEND Specialist
PROC: 0RJK4ZZ Inspection of Left Shoulder Joint, Percutaneous Endoscopic Approach (ICD-10-PCS; principal; 2024-03-09 13:45)
DX: M75.121 Complete rotator cuff tear or rupture of right shoulder, not specified as traumatic (principal); M19.011 Primary osteoarthritis, right shoulder; M94.20 Chondromalacia, unspecified site; M94.211 Chondromalacia, right shoulder; F32.9 Major depressive disorder, single episode, unspecified; K21.9 Gastro-esophageal reflux disease without esophagitis; E78.00 Pure hypercholesterolemia, unspecified; I10 Essential (primary) hypertension; G43.909 Migraine, unspecified, not intractable, without status migrainosus; Z88.0 Allergy status to penicillin; Z88.2 Allergy status to sulfonamides; Z88.5 Allergy status to narcotic agent; Z88.8 Allergy status to other drugs, medicaments and biological substances; Z79.899 Other long term (current) drug therapy
CPT/HCPCS: J0131; J0690; J1100; J2001; J2704; J2795; J7121